=== PATIENT | male | born 1985 | race Caucasian/White ===

== ENCOUNTER → 2016-03-21 | Outpatient (REF) | payer BC ==
[~2016-03-21] MED LIST: AUGM500T34 PO; NORC10TA2 PO; PROBCAP14 PO; VALA500T PO; VITMTA PO
[2016-03-21 18:10] LABS: ALBUMIN 4.6 GM/DL (3.2-5.2); ALBUMIN/GLOBULIN RATIO 1.59 (1.00-1.93); ALKALINE PHOSPHATASE 87 U/L (45-117); ALT/SGPT 49 U/L (12-78); ANION GAP 9 MEQ/L (8-16); AST/SGOT 20 U/L (15-37); BILIRUBIN,TOTAL 0.7 MG/DL (0.2-1.0); BLOOD UREA NITROGEN 16 MG/DL (7-18); CALCIUM LEVEL 9.3 MG/DL (8.5-10.1); CARBON DIOXIDE LEVEL 27 MEQ/L (21-32); CHLORIDE LEVEL 105 MEQ/L (98-107); CHOLESTEROL LEVEL 250 MG/DL (<200); CREATININE FOR GFR 1.13 MG/DL (0.70-1.30); GLOMERULAR FILTRATION RATE > 60.0 (>60); GLUCOSE, FASTING 95 MG/DL (70-105); POTASSIUM SERUM 4.8 MEQ/L (3.5-5.1); SODIUM LEVEL 141 MEQ/L (136-145); TOTAL PROTEIN 7.5 GM/DL (6.4-8.2); TRIGLYCERIDES LEVEL 90 MG/DL (<150)
[2016-03-21 18:34] LABS: MEAN CORPUSCULAR HEMOGLOBIN 28.3 pg (27.0-33.0); MEAN CORPUSCULAR HGB CONC 33.4 g/dl (32.0-36.5); MEAN CORPUSCULAR VOLUME 84.6 fl (80.0-96.0); WHITE BLOOD COUNT 7.9 K/mm3 (4.0-10.0)
== END ==
LOC: M SFHCLERA 10:26
PROVIDERS: ATTEND Family Medicine
DX: K13.79 Other lesions of oral mucosa (principal); Z13.220 Encounter for screening for lipoid disorders

== ENCOUNTER 2016-03-22 08:30 | Day surgery (SDC) | payer BC ==
[~2016-03-22] VITALS: Ht 185.4 cm; Wt 92.5 kg
[2016-03-22] MEDS ORDERED: ONDANSETRON 4MG/2ML VIAL (J2405) As Ordered ONE ×2 (09:50→13:27)
[2016-03-22] MEDS ORDERED: KETOROLAC 30 MG/ML VIAL (J1885) As Ordered ONE (09:50)
[2016-03-22 10:14] LABS: MEAN CORPUSCULAR HEMOGLOBIN 28.4 pg (27.0-33.0); MEAN CORPUSCULAR HGB CONC 34.7 g/dl (32.0-36.5); MEAN CORPUSCULAR VOLUME 81.8 fl (80.0-96.0); PLATELET COUNT, AUTOMATED 328 k/mm3 (150-450); RED CELL DISTRIBUTION WIDTH 11.8 % (11.5-14.5); WHITE BLOOD COUNT 16.6 K/mm3 (4.0-10.0)
[2016-03-22 10:24] LABS: ALBUMIN 4.5 GM/DL (3.2-5.2); ALBUMIN/GLOBULIN RATIO 1.36 (1.00-1.93); ALKALINE PHOSPHATASE 91 U/L (45-117); ALT/SGPT 45 U/L (12-78); AMYLASE 24 U/L (25-115); ANION GAP 8 MEQ/L (8-16); AST/SGOT 19 U/L (15-37); BILIRUBIN,DIRECT 0.1 MG/DL (0.0-0.2); BILIRUBIN,TOTAL 0.9 MG/DL (0.2-1.0); BLOOD UREA NITROGEN 12 MG/DL (7-18); CALCIUM LEVEL 9.2 MG/DL (8.5-10.1); CARBON DIOXIDE LEVEL 29 MEQ/L (21-32); CHLORIDE LEVEL 103 MEQ/L (98-107); CREATININE FOR GFR 1.08 MG/DL (0.70-1.30); GLOMERULAR FILTRATION RATE > 60.0 (>60); GLUCOSE, FASTING 104 MG/DL (70-105); POTASSIUM SERUM 4.1 MEQ/L (3.5-5.1); SODIUM LEVEL 140 MEQ/L (136-145); TOTAL PROTEIN 7.8 GM/DL (6.4-8.2)
[2016-03-22] MEDS ORDERED: ISOVUE-370 76% 100ML VIAL (Q9967) As Ordered ONE (10:35)
--- NOTE | 2016-03-22 10:51 | REP ---
Right upper quadrant sonography: History: Biliary colic. Comparison study: No comparison study. Findings: Scanning through the right upper quadrant of the abdomen demonstrates a normal sized, thin-walled gallbladder without evidence of stone or polyp. Some sludge is visible within the gallbladder lumen. Common bile duct is normal measuring 0.5 cm in greatest diameter. No focal liver lesion is seen. Liver size is normal. No pancreatic abnormality is observed. No right renal abnormality is seen. There is no evidence of ascites. The right kidney measures 11.7 x 5.7 x 5.2 cm. Impression: Some sludge in the gallbladder no stones. Otherwise negative right upper quadrant sonography. Signed by Omar Fuentes MD 03/22/2016 10:42 A
--- NOTE | 2016-03-22 11:46 | REP ---
CT STUDY OF THE ABDOMEN AND PELVIS WITH IV BUT WITHOUT ORAL CONTRAST: HISTORY: Appendicitis. CT contrast dose: 100 mL of Isovue [address] FINDINGS: Digital preliminary sound recordist radiograph is unremarkable. The lung bases are clear on axial CT slices. The liver and the spleen are normal in size and homogeneous in texture. No adrenal lesion is seen on either side. The gallbladder has a Phrygian cap morphology but is otherwise intact. No pancreatic abnormality is seen. The kidneys enhance symmetrically are morphologically intact. Normal caliber aorta is seen. No retroperitoneal mass or adenopathy is observed. The appendix is abnormal showing mural thickening, air and fluid dilation of its lumen, a small enterolith, and periappendiceal inflammation consistent with acute appendicitis. The appendix is located in the mid abdomen in this patient just beneath the inferior edge of the liver. There are two or three adjacent mesenteric lymph nodes. There is no evidence of free intraperitoneal air or abscess. No abdominal wall defect is seen. Small and large intestinal bowel loops are otherwise unremarkable. Urinary bladder, seminal vesicles and prostate are unremarkable. No bony destructive lesion is seen. IMPRESSION: CT findings of acute appendicitis. Appendix in the right mid abdomen. No abscess or free air seen. Signed by Omar Fuentes MD 03/22/2016 01:19 P
[2016-03-22] MEDS ORDERED: ZOSYN 3.375 GM VIAL (J2543) As Ordered ONE (12:51)
[2016-03-22] MEDS ORDERED: PROBCAP14 PO (13:04)
[2016-03-22] MEDS ORDERED: VITMTA PO (13:04)
[2016-03-22] MEDS ORDERED: VALA500T PO (13:04)
[2016-03-22] MEDS ORDERED: MORPHINE 4 MG/ML 1ML SYRINGE As Ordered ONE (13:11)
[2016-03-22] MEDS ORDERED: fentaNYL 250 MCG/5 ML INJECTION (J3010) As Ordered ONE (13:21)
[2016-03-22] MEDS ORDERED: MIDAZOLAM INJ 2 MG/2 ML VIAL (J2250) As Ordered ONE (13:26)
[2016-03-22] MEDS ORDERED: ROCURONIUM BROMIDE 50 MG/5 ML VIAL As Ordered ONE (13:27)
[2016-03-22] MEDS ORDERED: KETOROLAC 60 MG/2 ML VIAL (J1885) As Ordered ONE (13:27)
[2016-03-22] MEDS ORDERED: dexameTHASONE 4 MG/ML 1ML VIAL (J1100) As Ordered ONE ×2 (13:27)
[2016-03-22] MEDS ORDERED: LIDOCAINE 2% INJ 100 MG/5 ML SDV (FOR ANES.) As Ordered ONE (13:27)
[2016-03-22] MEDS ORDERED: PROPOFOL 200 MG/20 ML VIAL As Ordered ONE ×2 (13:27→14:22)
[2016-03-22] MEDS ORDERED: BUPIVACAINE/EPIN 0.25% 30 ML VIAL As Ordered ONE (13:29)
--- NOTE | 2016-03-22 13:29 | EDDOCDS ---
Physician Documentation [facility] Name: Con Monte Age: 30 yrs Sex: Male : 1985 Arrival Date: 03/22/2016 Time: 08:30 Bed I4 / M4 Private MD: Disposition: 03/22/16 12:54 Hospitalization ordered by Sorin Mauricio for Inpatient Admission. Preliminary diagnosis are Acute appendicitis, Upper abdominal pain, unspecified - Gallbladder sludge on Ultrasound. - Bed requested for Admit. - Status is Inpatient Admission. srm - Condition is Stable. - Problem is new. - Symptoms have improved. Historical: - Allergies: no known allergies; - Home Meds: 1. 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 No barriers to communication noted, The patient speaks fluent Upper Sorbian, Speaks appropriately for age. - Family history: Not pertinent. - : The pt / caregiver states he / she is not on anticoagulants. Home medication list is obtained from the patient. - Exposure Risk Screening:: None identified. Vital Signs: 03/22 08:57 BP 148 / 71; Pulse 90; Resp 16; Temp 99.6(O); Pulse Ox 97% on R/A; Weight 92.53 kg / kr3 203.99 lbs (R); Height 6 ft. 1 in. (185.42 cm) (R); 12:27 BP 117 / 72; Pulse 75; Resp 18; Temp 99.0; Pulse Ox 97% ; Pain 4/10; jam1 13:24 BP 138 / 87; Pulse 89; Resp 18; Temp 98.1; Pulse Ox 97% ; Pain 4/10; jam1 08:57 Body Mass Index 26.91 (92.53 kg, 185.42 cm) kr3 MDM: 09:42 NS 0.9% 1000 ml IV at bolus once ordered. ef1 09:42 Ondansetron 4 mg IVP once ordered. ef1 09:42 ketorolac 30 mg IVP once ordered. ef1 09:42 IV Saline Lock ordered. ef1 09:42 Undress patient appropriately for examination ordered. ef1 09:43 Amylase Ordered. EDMS 09:43 Basic Metabolic Profile Ordered. EDMS 09:43 CBC with Diff Ordered. EDMS 09:43 Lipase Ordered. EDMS 09:43 Liver Profile Ordered. EDMS 09:43 Urinalysis Ordered. EDMS 09:43 Urine Culture Ordered. EDMS 09:43 CT ABD & PELVIS: IV Contrast Only Ordered. EDMS 09:43 NOTHING BY MOUTH+DIET ordered. EDMS 09:45 Gallbladder US Ordered. EDMS 10:09 Financial registration complete. mm15 10:16 DIFFERENTIAL NO CHARGE Ordered. EDMS 10:18 [facility] [place] was [place] into [employer] and attached to record. mm15 10:36 Amylase Reviewed. ef1 10:36 CBC with Diff Reviewed. ef1 10:36 Basic Metabolic Profile Reviewed. ef1 10:36 Lipase Reviewed. ef1 10:36 Liver Profile Reviewed. ef1 10:36 Urinalysis Reviewed. ef1 12:45 Piperacillin-Tazobactam 3.375 grams IVPB once over 30 mins; dilute in 50mL of NS or D5W ef1 ordered. 12:45 CBC with Diff Reviewed. ef1 12:45 PLATELET ESTIMATE Reviewed. ef1 12:45 CT ABD & PELVIS: IV Contrast Only Reviewed. ef1 12:45 Gallbladder US Reviewed. ef1 12:46 BED REQUEST+ADM ordered. EDMS 13:00 morphine 4 mg IVP once ordered. ef1 13:20 Admission Orders was scanned into [employer] and attached to record. jml1 Administered Medications: 09:56 Drug: NS 0.9% 1000 ml [sodium chloride 0.9 % intravenous solution] Route: IV; Rate: mcp bolus; Site: right antecubital; :56 Drug: Ondansetron 4 mg [ondansetron HCl 2 mg/mL intravenous solution (2 mL)] Route: mcp IVP; Site: right antecubital; 09:56 Drug: ketorolac 30 mg [ketorolac 30 mg/mL (1 mL) injection solution (1 mL)] Route: IVP; mcp Site: right antecubital; 13:08 Drug: Piperacillin-Tazobactam 3.375 grams [piperacillin-tazobactam 3.375 gram ms18 intravenous solution] Route: IVPB; Infused Over: 30 mins; Site: right antecubital; Signatures: Dispatcher [employer] EDND Maine Paul, RN RN srm Esha Lofton RN RN kr3 Nazanin Jiménez, KEYSHAC PADmitryC ef1 Garrett Garsia jml1 Isaias Yi mm15 Malathi Lopez RN RN ms18 Odette Maier RN [facility] The chart was reviewed and I authenticate all verbal orders and agree with the evaluation and treatment provided.Attachments: 10:18 [facility] [place] mm15 13:20 Admission Orders jml1 MTDD
--- NOTE | 2016-03-22 13:29 | EDDOCDS ---
Nurse's Notes [facility] Name: Con Monte Age: 30 yrs Sex: Male : 1985 Arrival Date: 03/22/2016 Time: 08:30 Bed I4 / M4 Private MD: Diagnosis: Acute appendicitis;Upper abdominal pain, unspecified-Gallbladder sludge on Ultrasound Presentation: 03/22 08:54 Presenting complaint: Patient states: abdominal pain for more than 5 hours. Risk kr3 factors: the patient reports not having a history of previous torsion. Adult Sepsis Screening: The patient does not have new or worsening altered mentation. Patient's respiratory rate is less than 22. Systolic blood pressure is greater than 100. Patient has a qSOFA score of 0- Negative Sepsis Screen. Suicide/Homicide risk assessment- the patient denies having any suicidal and/or homicidal ideations and does not present with any other emotional, behavioral or mental health complaints. Status: Patient is not a customer service rep or dependent. Transition of care: patient was not received from another setting of care. 08:54 Acuity: POOL Level 3 kr3 08:54 Method Of Arrival: Walkin/Carried/Asstd kr3 Triage Assessment: 08:57 General: Appears in no apparent distress, comfortable, Behavior is cooperative. Pain: kr3 Location: right upper quadrant Pain currently is 6 out of 10 on a pain scale. HIV screening NA for this visit Offered previously. Neurological: No deficits noted. GI: Denies nausea, vomiting. Derm: Skin is normal. Historical: - Allergies: no known allergies; - Home Meds: 1. 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 No barriers to communication noted, The patient speaks fluent Puerto Rican, Speaks appropriately for age. - Family history: Not pertinent. - : The pt / caregiver states he / she is not on anticoagulants. Home medication list is obtained from the patient. - Exposure Risk Screening:: None identified. Screenin:57 Screening information is obtained from the patient. Primary language is Puerto Rican. Fall jam1 risk: No risks identified. Assistance ADL's: requires no assistance with activities of daily living. Abuse/DV Screen: The patient / caregiver reports he/she is: not in a situation that causes fear, pain or injury. Nutritional screening: No deficits noted. Exposure Risk Screening: None identified. Advance Directives: Currently, there is no health care proxy. There is no active DNR order. There is no living will. There is no Power of Software Development Specialist. Advance directive information has not previously been placed in an [facility] medical record. Further advance directive information is declined. home support is adequate. Assessment: 11:56 General: Appears in no apparent distress, comfortable, Behavior is appropriate for age, ms18 cooperative. Pain: Denies pain. Neurological: Level of Consciousness is awake, alert, obeys commands, Oriented to person, place, time. Respiratory: Airway is patent Respiratory effort is even, unlabored. GI: Abdomen is non- distended. Derm: Skin is pink, warm & dry. 13:08 General: Dr. Mauricio in to see the pt at this time. Will continue to monitor pt. ms18 13:25 General: Appears in no apparent distress, Behavior is appropriate for age, cooperative. srm GI: Abdomen is non- distended Bowel sounds present X 4 quads. Abd is soft X 4 quads Abd is tender to palpation in right lower quadrant. Vital Signs: 08:57 BP 148 / 71; Pulse 90; Resp 16; Temp 99.6(O); Pulse Ox 97% on R/A; Weight 92.53 kg (R); kr3 Height 6 ft. 1 in. (185.42 cm) (R); 12:27 BP 117 / 72; Pulse 75; Resp 18; Temp 99.0; Pulse Ox 97% ; Pain 4/10; jam1 13:24 BP 138 / 87; Pulse 89; Resp 18; Temp 98.1; Pulse Ox 97% ; Pain 4/10; jam1 08:57 Body Mass Index 26.91 (92.53 kg, 185.42 cm) [facility] Vitals: 08:57 Log In Time: March 22, 2016 at 08:30. [facility] ED Course: 08:31 Patient visited by Isaias Yi. mm15 08:31 Patient moved to Waiting mm15 08:54 Patient moved to Triage 2 kr3 08:55 Triage Initiated 3 09:25 Nazanin Jiménez PA-C [facility]. ef1 09:25 Cassie Lewis MD is Attending Physician. ef1 09:25 Patient visited by Nazanin Jiménez PA-C. ef1 09:44 Patient moved to I4 / M4 kr3 09:57 Pt greeted and oriented to ED. Patient advised of names of staff involved in care, jamRichard location of call plummer, wait times and NPO status. Patient has correct armband on for positive identification. Placed in gown. Bed in low position. Call light in reach. Side rails up X 1. Adult w/ patient. Door closed. 10:03 Urinalysis Sent. js13 10:03 Urine Culture Sent. js13 10:04 Inserted saline lock: 18 gauge in right antecubital area and blood collected. The js13 patient tolerated the procedure well. No procedures done that require assistance. Labs drawn. (by ED staff). Sent per order to lab. 10:18 [facility] Payment Agreement was scanned into [employer] and attached to record. mm15 10:20 Patient visited by Nazanin Jiménez PA-C. ef1 10:21 DIFFERENTIAL NO CHARGE Sent. js13 10:23 Patient moved to Ultrasound en 10:36 Patient visited by Nazanin Jiménez PA-C. ef1 10:39 Patient moved to I4 / M4 en 11:04 Gallbladder US Returned. EDMS 11:49 CT ABD & PELVIS: IV Contrast Only Returned. EDMS 11:56 Patient visited by Malathi Lopez RN. ms18 11:56 The patient / caregiver is instructed regarding the plan of care and ED course. ms18 Property :Personal belongings accompany Pt. 12:44 Patient visited by Nazanin Jiménez PA-C. ef1 12:54 Sorin Mauricio MD is Hospitalizing Provider. ef1 13:20 Patient visited by Garrett Garsia. jml1 13:20 Admission Orders was scanned into [employer] and attached to record. jml1 Administered Medications: 09:56 Drug: NS 0.9% 1000 ml [sodium chloride 0.9 % intravenous solution] Route: IV; Rate: mcp bolus; Site: right antecubital; :56 Drug: Ondansetron 4 mg [ondansetron HCl 2 mg/mL intravenous solution (2 mL)] Route: mcp IVP; Site: right antecubital; 09:56 Drug: ketorolac 30 mg [ketorolac 30 mg/mL (1 mL) injection solution (1 mL)] Route: IVP; [place] [facility] Site: right antecubital; 13:08 Drug: Piperacillin-Tazobactam 3.375 grams [piperacillin-tazobactam 3.375 gram ms18 intravenous solution] Route: IVPB; Infused Over: 30 mins; Site: right antecubital; Intake: 13:27 IV: 1000.00ml (NS); Total: 1000.00ml. srm Order Results: Lab Order: Amylase; SPEC'M 03/22/16 09:53 Test: AMYLASE; Value: 24; Range: 25-115; Abnormal: Below low normal; Units: U/L; Status: F Lab Order: Basic Metabolic Profile; SPEC'M 03/22/16 09:53 Test: GLUCOSE, FASTING; Value: 104; Range: 70-105; Units: MG/DL; Status: F Test: BLOOD UREA NITROGEN; Value: 12; Range: 7-18; Units: MG/DL; Status: F Test: CREATININE FOR GFR; Value: 1.08; Range: 0.70-1.30; Units: MG/DL; Status: F Test: GLOMERULAR FILTRATION RATE; Value: > 60.0; Range: >60; Status: F Test: SODIUM LEVEL; Value: 140; Range: 136-145; Units: MEQ/L; Status: F Test: POTASSIUM SERUM; Value: 4.1; Range: 3.5-5.1; Units: MEQ/L; Status: F Test: CHLORIDE LEVEL; Value: 103; Range: 98-107; Units: MEQ/L; Status: F Test: CARBON DIOXIDE LEVEL; Value: 29; Range: 21-32; Units: MEQ/L; Status: F Test: ANION GAP; Value: 8; Range: 8-16; Units: MEQ/L; Status: F Test: CALCIUM LEVEL; Value: 9.2; Range: 8.5-10.1; Units: MG/DL; Status: F Test Note: ; Units are mL/min/1.73 m2 Chronic Kidney Disease Staging per NKF: Stage I & II GFR >=60 Normal to Mildly Decreased Stage III GFR 30-59 Moderately Decreased Stage IV GFR 15-29 Severely Decreased Stage V GFR <15 Very Little GFR Left ESRD GFR <15 on [employer] Lab Order: CBC with Diff; SPEC03/22/16 09:53 Test: WHITE BLOOD COUNT; Value: 16.6; Range: 4.0-10.0; Abnormal: Above high normal; Units: K/mm3; Status: F Test: RED BLOOD COUNT; Value: 5.75; Range: 4.30-6.10; Units: M/mm3; Status: F Test: HEMOGLOBIN; Value: 16.3; Range: 14.0-18.0; Units: g/dl; Status: F Test: HEMATOCRIT; Value: 47.0; Range: 42.0-52.0; Units: %; Status: F Test: MEAN CORPUSCULAR VOLUME; Value: 81.8; Range: 80.0-96.0; Units: fl; Status: F Test: MEAN CORPUSCULAR HEMOGLOBIN; Value: 28.4; Range: 27.0-33.0; Units: pg; Status: F Test: MEAN CORPUSCULAR HGB CONC; Value: 34.7; Range: 32.0-36.5; Units: g/dl; Status: F Test: RED CELL DISTRIBUTION WIDTH; Value: 11.8; Range: 11.5-14.5; Units: %; Status: F Test: PLATELET COUNT, AUTOMATED; Value: 328; Range: 150-450; Units: k/mm3; Status: F Test: NEUTROPHILS; Value: 84; Range: 35-75; Abnormal: Above high normal; Units: %; Status: F Test: LYMPHOCYTES; Value: 12; Range: 16-52; Abnormal: Below low normal; Units: %; Status: F Test: MONOCYTES; Value: 4; Range: 0-8; Units: %; Status: F Test: RBC MORPHOLOGY; Value: NORMAL; Status: F Lab Order: Lipase; SPEC03/22/16 09:53 Test: LIPASE; Value: 106; Range: 73-393; Units: U/L; Status: F Lab Order: Liver Profile; SPEC03/22/16 09:53 Test: AST/SGOT; Value: 19; Range: 15-37; Units: U/L; Status: F Test: ALT/SGPT; Value: 45; Range: 12-78; Units: U/L; Status: F Test: ALKALINE PHOSPHATASE; Value: 91; Range: 45-117; Units: U/L; Status: F Test: BILIRUBIN,TOTAL; Value: 0.9; Range: 0.2-1.0; Units: MG/DL; Status: F Test: BILIRUBIN,DIRECT; Value: 0.1; Range: 0.0-0.2; Units: MG/DL; Status: F Test: TOTAL PROTEIN; Value: 7.8; Range: 6.4-8.2; Units: GM/DL; Status: F Test: ALBUMIN; Value: 4.5; Range: 3.2-5.2; Units: GM/DL; Status: F Test: ALBUMIN/GLOBULIN RATIO; Value: 1.36; Range: 1.00-1.93; Status: F Lab Order: Urinalysis; SPEC'M 03/22/16 09:53 Test: APPEARANCE, URINE; Value: CLEAR; Range: CLEAR; Status: F Test: COLOR, URINE; Value: YELLOW; Range: YELLOW; Status: F Test: PH,URINE; Value: 5.0; Range: 5.0-9.0; Units: UNITS; Status: F Test: SPECIFIC GRAVITY URINE AUTO; Value: 1.012; Range: 1.002-1.035; Status: F Test: PROTEIN, URINE AUTO; Value: NEGATIVE; Range: NEGATIVE; Units: mg/dL; Status: F Test: GLUCOSE, URINE (UA) AUTO; Value: NEGATIVE; Range: NEGATIVE; Units: mg/dL; Status: F Test: KETONE, URINE AUTO; Value: NEGATIVE; Range: NEGATIVE; Units: mg/dL; Status: F Test: UROBILINOGEN, URINE AUTO; Value: 0.2; Range: 0.0-2.0; Units: mg/dL; Status: F Test: BILIRUBIN, URINE AUTO; Value: NEGATIVE; Range: NEGATIVE; Status: F Test: NITRITE, URINE AUTO; Value: NEGATIVE; Range: NEGATIVE; Status: F Test: LEUKOCYTE ESTERASE, URINE AUTO; Value: NEGATIVE; Range: NEGATIVE; Status: F Test: BLOOD, URINE BLOOD; Value: NEGATIVE; Range: NEGATIVE; Status: F Test: WBC, URINE AUTO; Value: 0; Range: 0-3; Units: /HPF; Status: F Test: RBC, URINE AUTO; Value: 0; Range: 0-3; Units: /HPF; Status: F Test: BACTERIA, URINE AUTO; Value: NEGATIVE; Range: NEGATIVE; Status: F Test: SQUAMOUS EPITHELIAL CELL UR AU; Value: 0; Range: 0-6; Units: /HPF; Status: F Test: HYALINE CAST, URINE AUTO; Value: 0; Range: 0-1; Units: /LPF; Status: F Lab Order: PLATELET ESTIMATE; SPEC'M 03/22/16 09:53 Test: PLATELET ESTIMATE; Value: NORMAL; Range: NORMAL; Status: F Radiology Order: CT ABD & PELVIS: IV Contrast Only Test: CT ABD & PELVIS: IV Contrast Only REASON FOR EXAMINATION: Appendicitis; CT STUDY OF THE ABDOMEN AND PELVIS WITH IV BUT WITHOUT ORAL CONTRAST:; ; HISTORY: Appendicitis.; ; CT contrast dose: 100 mL of Isovue 370 is administered intravenously.; ; CT FINDINGS: Digital preliminary regional intermodal truck driver radiograph is unremarkable. The lung; bases are clear on axial CT slices. The liver and the spleen are normal in size; and homogeneous in texture. No adrenal lesion is seen on either side. The; gallbladder has a Phrygian cap morphology but is otherwise intact. No pancreatic; abnormality is seen. The kidneys enhance symmetrically are morphologically; intact. Normal caliber aorta is seen. No retroperitoneal mass or adenopathy is; observed. The appendix is abnormal showing mural thickening, air and fluid; dilation of its lumen, a small enterolith, and periappendiceal inflammation; consistent with acute appendicitis. The appendix is located in the mid abdomen; in this patient just beneath the inferior edge of the liver. There are two or; three adjacent mesenteric lymph nodes. There is no evidence of free; intraperitoneal air or abscess.; ; No abdominal wall defect is seen. Small and large intestinal bowel loops are; otherwise unremarkable. Urinary bladder, seminal vesicles and prostate are; unremarkable. No bony destructive lesion is seen.; ; IMPRESSION:; CT findings of acute appendicitis. Appendix in the right mid abdomen. No abscess; or free air seen.; ; ; ; ; Unreviewed; Radiology Order: Gallbladder US Test: Gallbladder US REASON FOR EXAMINATION: Biliary Colic; Right upper quadrant sonography:; ; History: Biliary colic.; ; Comparison study: No comparison study.; ; Findings: Scanning through the right upper quadrant of the abdomen demonstrates a; normal sized, thin-walled gallbladder without evidence of stone or polyp. Some; sludge is visible within the gallbladder lumen. Common bile duct is normal; measuring 0.5 cm in greatest diameter. No focal liver lesion is seen. Liver; size is normal. No pancreatic abnormality is observed. No right renal; abnormality is seen. There is no evidence of ascites. The right kidney measures; 11.7 x 5.7 x 5.2 cm.; ; Impression:; ; Some sludge in the gallbladder no stones. Otherwise negative right upper; quadrant sonography.; ; ; Signed by; Omar Fuentes MD 03/22/2016 10:42 A; Outcome: 12:54 Decision to Hospitalize by Provider. ef1 13:27 Discharge Assessment: Patient awake, alert and oriented x 3. No cognitive and/or [facility] functional deficits noted. Patient verbalized understanding of disposition instructions. patient administered narcotics -. 13:27 Discharge Assessment: patient administered narcotics - yes. Patient was admitted to the [facility] hospital or transferred to another facility. The following High Risk Discharge criteria are identified: None. Admitted to OR accompanied by nurse, accompanied by tech, via stretcher, with chart. Condition: stable. CT Study completed. 13:28 Patient left the ED. [facility] Signatures: Dispatcher [employer] EDMS Maine Paul RN SESAR [facility] Odette Maier, RN Janna Vann mcp, [employer] REPAIR TECHNICIAN jam1 Esha Lofton,RN RN kr3 Nazanin Jiménez, PA-C PA-C ef1 Garrett Garsia jml1 Leora Payton RN RN js13 Isaias Yi mm15 Malathi Lopez RN RN ms18 Jana Escalera MTDD
[2016-03-22] MEDS ORDERED: GLYCOPYRROLATE INJ 0.2 MG/ML 2 ML VIAL As Ordered ONE ×2 (14:20)
[2016-03-22] MEDS ORDERED: NEOSTIGMINE 1MG/ML 5 ML SYRINGE (J2710) As Ordered ONE (14:20)
[2016-03-22] MEDS ORDERED: BUPIVACAINE/EPIN 0.25% 30 ML VIAL XX ONE (14:40)
[2016-03-22] MEDS ORDERED: MORPHINE 4 MG/ML 1ML SYRINGE IV PRN (15:15)
[2016-03-22] MEDS ORDERED: METOCLOPRAMIDE INJ 10MG/2ML VIAL (J2765) IV PRN ×2 (15:15→16:00)
[2016-03-22] MEDS ORDERED: MORPHINE 2 MG/ML 1ML SYRINGE IV PRN (15:15)
[2016-03-22] MEDS ORDERED: NORCO, ANEXSIA 5/325MG TABLET (HYDROcodone/ACETAMINOPHEN) PO PRN (15:15)
[2016-03-22] MEDS ORDERED: ONDANSETRON 4MG/2ML VIAL (J2405) IV PRN ×2 (15:15→16:00)
[2016-03-22] MEDS ORDERED: PROMETHAZINE INJ 25 MG/ML VIAL (J2550) IV PRN (15:15)
--- NOTE | 2016-03-22 15:17 | RO ---
DATE OF PROCEDURE: 03/22/2016 PREPROCEDURE DIAGNOSIS: Acute appendicitis. POSTPROCEDURE DIAGNOSIS: Acute appendicitis. PROCEDURE: Laparoscopic appendectomy. SURGEON: Sorin Mauricio MD ANESTHESIA: General endotracheal anesthesia. ESTIMATED BLOOD LOSS: Minimal. FLUIDS: Crystalloid. DESCRIPTION OF PROCEDURE: The patient was brought to the operating room and was given general anesthesia. After adequate anesthesia and preoperative antibiotics were given, the patient was prepped and draped in usual sterile fashion. Next, a supraumbilical incision was made with skin knife. Electrocautery was used to cut through dermis, underlying subcutaneous tissue down to the fascia. Fascia was grasped with Deepti clamps, elevated and a Veress needle placed into the abdominal cavity, insufflated to 15 mm pressure. A dilating 12 mm trocar was placed at the umbilicus under direct visualization. A 5 mm suprapubic and 5 mm left lower quadrant trocars were placed. The appendix was a little higher than a typical appendix on the right mid lateral abdomen and it was anteriorly placed. This was mobilized off the base of the cecum using the harmonic scalpel, first to takedown minimal adhesions and eventually after taking down these adhesions, the mesentery of the appendix was taken with harmonic scalpel. This was transected using the harmonic scalpel. Then the base of the appendix was transected using a WALE stapler. It was taken at the level where it abutted to the cecum itself. The staple line was clean, dry and no bleeding was appreciated. The operative field was clean and dry. This was irrigated, but at this point, the patient developed some bradycardia associated with increased intra-abdominal pressure. The right side had been irrigated so that was clear; however, and the entire amount of fluid was not able to be removed and thus the abdomen was decompressed. The bradycardia resolved quite quickly and all trocars were removed under direct visualization at this time. 0 Vicryl was used to close the fascia at the umbilicus and all incisions were closed with #4-0 Vicryl. Steri-Strips and a dry sterile dressing was applied. The patient was awakened, extubated and brought to the recovery room awake, alert, hemodynamically stable. Sponge and needle counts correct times two.
[2016-03-22] MEDS ORDERED: PERCOCET 5MG/325MG TAB As Ordered ONE (15:44)
[2016-03-22] MEDS ORDERED: MEPERIDINE INJ 25 MG/ML VIAL (J2175) IV PRN (16:00)
[2016-03-22] MEDS ORDERED: LR 1,000 ML IV SCH (16:00)
[2016-03-22] MEDS ORDERED: PERCOCET 5MG/325MG TAB PO PRN (16:00)
[2016-03-22] MEDS ORDERED: fentaNYL 100 MCG/2 ML INJECTION (J3010) IV PRN (16:00)
[2016-03-22 16:15] VITALS: BP 121/77
[2016-03-22 16:45] VITALS: BP 137/82
[2016-03-22] MEDS: D5W/LR 1,000 ML IV SCH ×2 (17:20→23:05)
[2016-03-22 17:45] VITALS: BP 131/79
[2016-03-22 18:45] VITALS: BP 139/83
[2016-03-22] MEDS: PIPERACILLIN/TAZOBACTAM SOD 3.375 GM in D5W MINI-BAG PLUS 50 ML IV SCH (19:44)
[2016-03-22 19:45] VITALS: BP 137/79
[2016-03-22 20:45] VITALS: BP 145/88
[2016-03-22] MEDS: KETOROLAC 30 MG/ML VIAL (J1885) IV SCH (20:50)
[2016-03-23] VITALS: BP 137/74
[2016-03-23] MEDS: PIPERACILLIN/TAZOBACTAM SOD 3.375 GM in D5W MINI-BAG PLUS 50 ML IV SCH ×2 (00:09→06:04)
[2016-03-23] MEDS: NORCO, ANEXSIA 5/325MG TABLET (HYDROcodone/ACETAMINOPHEN) PO PRN ×2 (00:10→06:11)
[2016-03-23] MEDS: KETOROLAC 30 MG/ML VIAL (J1885) IV SCH ×2 (02:48→08:03)
[2016-03-23 04:00] VITALS: BP 116/58
[2016-03-23 08:00] VITALS: BP 116/71
[2016-03-23] MEDS ORDERED: AUGM500T34 PO (09:08)
[2016-03-23] MEDS ORDERED: NORC10TA2 PO (09:08)
--- NOTE | 2016-03-23 10:32 | DS.PDOC ---
Discharge Summary General Date of Admission 03/22/16 Date of Discharge 03/23/16 Attending Physician: Sorin Maurciio Jr Discharge Summary PROCEDURES PERFORMED DURING STAY: Laparoscopic cholecystectomy. COMPLICATIONS/CHIEF COMPLAINT: Appendicitis ADMISSION DIAGNOSES: 1. Acute Appendicitis 2. Abdominal Pain DISCHARGE DIAGNOSES: 1. Status post laparoscopic appendectomy. 2. Abdominal pain resolved. HISTORY OF PRESENT ILLNESS: Patient is a 30 year old male presenting with abdominal pain for x1 day. HOSPITAL COURSE: Patient was admitted for abdominal pain. Patient had pain since 4 AM on 03/22/16. Pain did not go away and patient presented to ER. Pain was located to RUQ. CT showed signs of appendicitis. Patient's WBC count was 16.[address] Mauricio was consulted to evaluate and treat patient. A laparoscopic appendectomy was performed. Patient was observed overnight. Patient is managing pain and has tolerated regular diet. No nausea or vomiting. Abdominal pain has resolved. No pain on discharge. DISCHARGE MEDICATIONS: Please see below. ALLERGIES: Please see below. PHYSICAL EXAMINATION ON DISCHARGE: VITAL SIGNS: Please see below. GENERAL: Cooperative. Alert and orientated. No acute distress. HEENT: Eyes open spontaneously. CARDIOVASCULAR EXAMINATION: Normal s1 and s2, no clicks rubs gallops or murmurs. RESPIRATORY EXAMINATION: Equal bilaterally. ABDOMINAL EXAMINATION: Soft, nondistended. No pain to palpation. Bowel sounds heard. Wound site are healing, no signs of inflammation. Wound is covered with steri strips and sterile dressing. EXTREMITIES: no lower extremity edema. NEUROLOGICAL EXAMINATION: Speech intact. LABORATORY DATA: Please see below. IMAGING: CT abdomen and pelvis: showed thickening of appendix, air and fluid dilation of lumen, small enterolith, inflammation. VTE Prophylaxis ordered?: Ambulation encouraged. DISCHARGE CONDITION: Stable. DISPOSITION: home. ACTIVITY: Rest for first 2 days. Then restrict lifting. Only up to 25 pounds for first 2 weeks and 50 pounds for following 2 weeks. DIET: As tolerated. ITEMS TO FOLLOWUP ON OUTPATIENT: 1. . 2. . 3. . DISCHARGE PLAN AND INSTRUCTIONS: 1. Patient to be discharged on Augmentin 500 mg PO BID for 5 days, [place] 10-325 mg Q4-6h PRN for pain MDD 6 dispense 20. 2. Patient may take ibuprofen 600 mg PRN TID for pain. 3. Patient to rest first 2 days with no lifting, pulling or twisting. Then take it easy following those 2 days. Restrict lifting based on weight as mentioned above. TIME SPENT ON DISCHARGE: Greater than 20 minutes. Vital Signs/I&Os Vital Signs Date Time Temp Pulse Resp B/P Pulse Ox O2 Delivery O2 Flow Rate FiO2 03/23/16 08:00 96.6 77 18 116/71 96 Room Air I&O- Last 24 Hours up to 6 AM 03/23/16 05:59 Intake Total 3560 ml Output Total 2310 ml Balance 1250 ml Microbiology Microbiology 03/22/16 Urine Culture - Final, Complete Medications Scheduled (Probiotic) 1 Cap Cap 1 CAP PO DAILY Amoxicillin/Clavulanate Potas (Augmentin 500-125 mg) 1 Tab Tab 500 MG PO BID Multivitamins *[facility] STOCKED* (Thera M Plus *[facility] STOCKED*) 1 Tab Tab 1 TAB PO DAILY Scheduled PRN Acetaminophen/Hydrocodone ([place] 10-325 mg) 1 Tab Tab 1 TAB PO PRN PRN PRN PAIN OR FEVER Valacyclovir HCl (Valacyclovir HCl) 500 Mg Tab 1,000 MG PO DAILY PRN PRN COLD SORES Allergies Coded Allergies: No Known Allergies (Unverified , 03/22/16) GME ATTESTATION GME ATTESTATION My preceptor for this patient encounter was Dr. Mauricio and he was physically present in the building during the encounter and was fully available. As needed , all aspects of the patient interview, examination, medical decision making process, and medical care plan development were reviewed and approved by the preceptor. Preceptor is aware and concurs with the plan as stated in the body of this note and will attest to such by his/her cosignature. GUILLERMO NOGUEIRA DO Mar 23, 2016 10:32
--- NOTE | 2016-03-24 14:29 | EDDOCDS ---
Physician Documentation [facility] Name: Con Monte Age: 30 yrs Sex: Male : 1985 Arrival Date: 03/22/2016 Time: 08:30 Bed I4 / M4 Private MD: Disposition: 03/22/16 12:54 Hospitalization ordered by Sorin Mauricio for Inpatient Admission. Preliminary diagnosis are Acute appendicitis, Upper abdominal pain, unspecified - Gallbladder sludge on Ultrasound. - Bed requested for Admit. - Status is Inpatient Admission. srm - Condition is Stable. - Problem is new. - Symptoms have improved. Historical: - Allergies: no known allergies; - Home Meds: 1. 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 No barriers to communication noted, The patient speaks fluent Maltese, Speaks appropriately for age. - Family history: Not pertinent. - : The pt / caregiver states he / she is not on anticoagulants. Home medication list is obtained from the patient. - Exposure Risk Screening:: None identified. Vital Signs: 03/22 08:57 BP 148 / 71; Pulse 90; Resp 16; Temp 99.6(O); Pulse Ox 97% on R/A; Weight 92.53 kg / kr3 203.99 lbs (R); Height 6 ft. 1 in. (185.42 cm) (R); 12:27 BP 117 / 72; Pulse 75; Resp 18; Temp 99.0; Pulse Ox 97% ; Pain 4/10; jam1 13:24 BP 138 / 87; Pulse 89; Resp 18; Temp 98.1; Pulse Ox 97% ; Pain 4/10; jam1 08:57 Body Mass Index 26.91 (92.53 kg, 185.42 cm) kr3 MDM: 09:42 NS 0.9% 1000 ml IV at bolus once ordered. ef1 09:42 Ondansetron 4 mg IVP once ordered. ef1 09:42 ketorolac 30 mg IVP once ordered. ef1 09:42 IV Saline Lock ordered. ef1 09:42 Undress patient appropriately for examination ordered. ef1 09:43 Amylase Ordered. EDMS 09:43 Basic Metabolic Profile Ordered. EDMS 09:43 CBC with Diff Ordered. EDMS 09:43 Lipase Ordered. EDMS 09:43 Liver Profile Ordered. EDMS 09:43 Urinalysis Ordered. EDMS 09:43 Urine Culture Ordered. EDMS 09:43 CT ABD & PELVIS: IV Contrast Only Ordered. EDMS 09:43 NOTHING BY MOUTH+DIET ordered. EDMS 09:45 Gallbladder US Ordered. EDMS 10:09 Financial registration complete. mm15 10:16 DIFFERENTIAL NO CHARGE Ordered. EDMS 10:18 [facility] Payment Agreement was scanned into [employer] and attached to record. mm15 10:36 Amylase Reviewed. ef1 10:36 CBC with Diff Reviewed. ef1 10:36 Basic Metabolic Profile Reviewed. ef1 10:36 Lipase Reviewed. ef1 10:36 Liver Profile Reviewed. ef1 10:36 Urinalysis Reviewed. ef1 12:45 Piperacillin-Tazobactam 3.375 grams IVPB once over 30 mins; dilute in 50mL of NS or D5W ef1 ordered. 12:45 CBC with Diff Reviewed. ef1 12:45 PLATELET ESTIMATE Reviewed. ef1 12:45 CT ABD & PELVIS: IV Contrast Only Reviewed. ef1 12:45 Gallbladder US Reviewed. ef1 12:46 BED REQUEST+ADM ordered. EDMS 13:00 morphine 4 mg IVP once ordered. ef1 13:20 Admission Orders was scanned into [employer] and attached to record. jml1 14:27 T-Sheet-- Draft Copy was scanned into [employer] and attached to record. gb Administered Medications: :56 Drug: NS 0.9% 1000 ml [sodium chloride 0.9 % intravenous solution] Route: IV; Rate: mcp bolus; Site: right antecubital; :56 Drug: Ondansetron 4 mg [ondansetron HCl 2 mg/mL intravenous solution (2 mL)] Route: mcp IVP; Site: right antecubital; :56 Drug: ketorolac 30 mg [ketorolac 30 mg/mL (1 mL) injection solution (1 mL)] Route: IVP; mcp Site: right antecubital; 13:08 Drug: Piperacillin-Tazobactam 3.375 grams [piperacillin-tazobactam 3.375 gram ms18 intravenous solution] Route: IVPB; Infused Over: 30 mins; Site: right antecubital; Signatures: Dispatcher [employer] [place] Mckay RN RN [facility] Wendy Newman, Parvez [facility] Esha Lofton RN RN kr3 Nazanin Jiménez, PADmitryC PA-C ef1 Garrett Garsia jml1 Isaias Yi mm15 Malathi Lopez RN RN ms18 Odette Maier RN [facility] The chart was reviewed and I authenticate all verbal orders and agree with the evaluation and treatment provided.Attachments: 10:18 [facility] Payment Agreement mm15 13:20 Admission Orders jml1 14:27 T-Sheet-- Draft Copy gb Chart Complete MTDD
--- NOTE | 2016-03-24 14:29 | EDDOCDS ---
Physician Documentation [facility] Name: Con Monte Age: 30 yrs Sex: Male : 1985 Arrival Date: 03/22/2016 Time: 08:30 Bed I4 / M4 Private MD: Disposition: 03/22/16 12:54 Hospitalization ordered by Sorin Mauricio for Inpatient Admission. Preliminary diagnosis are Acute appendicitis, Upper abdominal pain, unspecified - Gallbladder sludge on Ultrasound. - Bed requested for Admit. - Status is Inpatient Admission. srm - Condition is Stable. - Problem is new. - Symptoms have improved. Historical: - Allergies: no known allergies; - Home Meds: 1. 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 No barriers to communication noted, The patient speaks fluent Welsh, Speaks appropriately for age. - Family history: Not pertinent. - : The pt / caregiver states he / she is not on anticoagulants. Home medication list is obtained from the patient. - Exposure Risk Screening:: None identified. Vital Signs: 03/22 08:57 BP 148 / 71; Pulse 90; Resp 16; Temp 99.6(O); Pulse Ox 97% on R/A; Weight 92.53 kg / kr3 203.99 lbs (R); Height 6 ft. 1 in. (185.42 cm) (R); 12:27 BP 117 / 72; Pulse 75; Resp 18; Temp 99.0; Pulse Ox 97% ; Pain 4/10; jam1 13:24 BP 138 / 87; Pulse 89; Resp 18; Temp 98.1; Pulse Ox 97% ; Pain 4/10; jam1 08:57 Body Mass Index 26.91 (92.53 kg, 185.42 cm) kr3 MDM: 09:42 NS 0.9% 1000 ml IV at bolus once ordered. ef1 09:42 Ondansetron 4 mg IVP once ordered. ef1 09:42 ketorolac 30 mg IVP once ordered. ef1 09:42 IV Saline Lock ordered. ef1 09:42 Undress patient appropriately for examination ordered. ef1 09:43 Amylase Ordered. EDMS 09:43 Basic Metabolic Profile Ordered. EDMS 09:43 CBC with Diff Ordered. EDMS 09:43 Lipase Ordered. EDMS 09:43 Liver Profile Ordered. EDMS 09:43 Urinalysis Ordered. EDMS 09:43 Urine Culture Ordered. EDMS 09:43 CT ABD & PELVIS: IV Contrast Only Ordered. EDMS 09:43 NOTHING BY MOUTH+DIET ordered. EDMS 09:45 Gallbladder US Ordered. EDMS 10:09 Financial registration complete. mm15 10:16 DIFFERENTIAL NO CHARGE Ordered. EDMS 10:18 [facility] Payment Agreement was scanned into [employer] and attached to record. mm15 10:36 Amylase Reviewed. ef1 10:36 CBC with Diff Reviewed. ef1 10:36 Basic Metabolic Profile Reviewed. ef1 10:36 Lipase Reviewed. ef1 10:36 Liver Profile Reviewed. ef1 10:36 Urinalysis Reviewed. ef1 12:45 Piperacillin-Tazobactam 3.375 grams IVPB once over 30 mins; dilute in 50mL of NS or D5W ef1 ordered. 12:45 CBC with Diff Reviewed. ef1 12:45 PLATELET ESTIMATE Reviewed. ef1 12:45 CT ABD & PELVIS: IV Contrast Only Reviewed. ef1 12:45 Gallbladder US Reviewed. ef1 12:46 BED REQUEST+ADM ordered. EDMS 13:00 morphine 4 mg IVP once ordered. ef1 13:20 Admission Orders was scanned into [employer] and attached to record. [email or web address] 14:27 T-Sheet-- Draft Copy was scanned into [employer] and attached to record. gb Administered Medications: :56 Drug: NS 0.9% 1000 ml [sodium chloride 0.9 % intravenous solution] Route: IV; Rate: mcp bolus; Site: right antecubital; :56 Drug: Ondansetron 4 mg [ondansetron HCl 2 mg/mL intravenous solution (2 mL)] Route: mcp IVP; Site: right antecubital; :56 Drug: ketorolac 30 mg [ketorolac 30 mg/mL (1 mL) injection solution (1 mL)] Route: IVP; mcp Site: right antecubital; 13:08 Drug: Piperacillin-Tazobactam 3.375 grams [piperacillin-tazobactam 3.375 gram ms18 intravenous solution] Route: IVPB; Infused Over: 30 mins; Site: right antecubital; Signatures: Dispatcher [employer] [place] Mckay RN RN [facility] Wendy Newman, Parvez [facility] Esha Lofton RN RN kr3 Nazanin Jiménez, PADmitryC PA-C ef1 Garrett Garsia jml1 Isaias Yi mm15 Malathi Lopez RN RN ms18 Odette Maier RN [facility] The chart was reviewed and I authenticate all verbal orders and agree with the evaluation and treatment provided.Attachments: 10:18 [facility] Payment Agreement mm15 13:20 Admission Orders jml1 14:27 T-Sheet-- Draft Copy gb Chart Complete MTDD
--- NOTE | 2016-03-24 14:29 | EDDOCDS ---
Nurse's Notes [facility] Name: Con Monte Age: 30 yrs Sex: Male : 1985 Arrival Date: 03/22/2016 Time: 08:30 Bed I4 / M4 Private MD: Diagnosis: Acute appendicitis;Upper abdominal pain, unspecified-Gallbladder sludge on Ultrasound Presentation: 03/22 08:54 Presenting complaint: Patient states: abdominal pain for more than 5 hours. Risk kr3 factors: the patient reports not having a history of previous torsion. Adult Sepsis Screening: The patient does not have new or worsening altered mentation. Patient's respiratory rate is less than 22. Systolic blood pressure is greater than 100. Patient has a qSOFA score of 0- Negative Sepsis Screen. Suicide/Homicide risk assessment- the patient denies having any suicidal and/or homicidal ideations and does not present with any other emotional, behavioral or mental health complaints. Status: Patient is not a registered nurse surgical services or dependent. Transition of care: patient was not received from another setting of care. 08:54 Acuity: POOL Level 3 kr3 08:54 Method Of Arrival: Walkin/Carried/Asstd kr3 Triage Assessment: 08:57 General: Appears in no apparent distress, comfortable, Behavior is cooperative. Pain: kr3 Location: right upper quadrant Pain currently is 6 out of 10 on a pain scale. HIV screening NA for this visit Offered previously. Neurological: No deficits noted. GI: Denies nausea, vomiting. Derm: Skin is normal. Historical: - Allergies: no known allergies; - Home Meds: 1. 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 No barriers to communication noted, The patient speaks fluent Ethiopian, Speaks appropriately for age. - Family history: Not pertinent. - : The pt / caregiver states he / she is not on anticoagulants. Home medication list is obtained from the patient. - Exposure Risk Screening:: None identified. Screenin:57 Screening information is obtained from the patient. Primary language is Ethiopian. Fall jam1 risk: No risks identified. Assistance ADL's: requires no assistance with activities of daily living. Abuse/DV Screen: The patient / caregiver reports he/she is: not in a situation that causes fear, pain or injury. Nutritional screening: No deficits noted. Exposure Risk Screening: None identified. Advance Directives: Currently, there is no health care proxy. There is no active DNR order. There is no living will. There is no Power of Block Inspector. Advance directive information has not previously been placed in an [facility] medical record. Further advance directive information is declined. home support is adequate. Assessment: 11:56 General: Appears in no apparent distress, comfortable, Behavior is appropriate for age, ms18 cooperative. Pain: Denies pain. Neurological: Level of Consciousness is awake, alert, obeys commands, Oriented to person, place, time. Respiratory: Airway is patent Respiratory effort is even, unlabored. GI: Abdomen is non- distended. Derm: Skin is pink, warm & dry. 13:08 General: Dr. Mauricio in to see the pt at this time. Will continue to monitor pt. ms18 13:25 General: Appears in no apparent distress, Behavior is appropriate for age, cooperative. srm GI: Abdomen is non- distended Bowel sounds present X 4 quads. Abd is soft X 4 quads Abd is tender to palpation in right lower quadrant. Vital Signs: 08:57 BP 148 / 71; Pulse 90; Resp 16; Temp 99.6(O); Pulse Ox 97% on R/A; Weight 92.53 kg (R); kr3 Height 6 ft. 1 in. (185.42 cm) (R); 12:27 BP 117 / 72; Pulse 75; Resp 18; Temp 99.0; Pulse Ox 97% ; Pain 4/10; jam1 13:24 BP 138 / 87; Pulse 89; Resp 18; Temp 98.1; Pulse Ox 97% ; Pain 4/10; jam1 08:57 Body Mass Index 26.91 (92.53 kg, 185.42 cm) [facility] Vitals: 08:57 Log In Time: March 22, 2016 at 08:30. [facility] ED Course: 08:31 Patient visited by Isaias Yi. mm15 08:31 Patient moved to Waiting mm15 08:54 Patient moved to Triage 2 kr3 08:55 Triage Initiated 3 09:25 [facility] ef1 09:25 Cassie Lewis MD is Attending Physician. ef1 09:25 Patient visited by Naaznin Jiménez PA-C. ef1 09:44 Patient moved to I4 / M4 kr3 09:57 Pt greeted and oriented to ED. Patient advised of names of staff involved in care, jamRichard location of call plummer, wait times and NPO status. Patient has correct armband on for positive identification. Placed in gown. Bed in low position. Call light in reach. Side rails up X 1. Adult w/ patient. Door closed. 10:03 Urinalysis Sent. js13 10:03 Urine Culture Sent. js13 10:04 Inserted saline lock: 18 gauge in right antecubital area and blood collected. The js13 patient tolerated the procedure well. No procedures done that require assistance. Labs drawn. (by ED staff). Sent per order to lab. 10:18 [facility] Payment Agreement was scanned into [employer] and attached to record. mm15 10:20 Patient visited by Nazanin Jiménez PA-C. ef1 10:21 DIFFERENTIAL NO CHARGE Sent. js13 10:23 Patient moved to Ultrasound en 10:36 Patient visited by Nazanin Jiménez PA-C. ef1 10:39 Patient moved to I4 / M4 en 11:04 Gallbladder US Returned. EDMS 11:49 CT ABD & PELVIS: IV Contrast Only Returned. EDMS 11:56 Patient visited by Malathi Lopez RN. ms18 11:56 The patient / caregiver is instructed regarding the plan of care and ED course. ms18 Property :Personal belongings accompany Pt. 12:44 Patient visited by Nazanin Jiménez PA-C. ef1 12:54 Sorin Mauricio MD is Hospitalizing Provider. ef1 13:20 Patient visited by Garrett Garsia. jml1 13:20 Admission Orders was scanned into [employer] and attached to record. jml1 14:27 T-Sheet-- Draft Copy was scanned into [employer] and attached to record. gb Administered Medications: :56 Drug: NS 0.9% 1000 ml [sodium chloride 0.9 % intravenous solution] Route: IV; Rate: mcp bolus; Site: right antecubital; :56 Drug: Ondansetron 4 mg [ondansetron HCl 2 mg/mL intravenous solution (2 mL)] Route: mcp IVP; Site: right antecubital; 09:56 Drug: ketorolac 30 mg [ketorolac 30 mg/mL (1 mL) injection solution (1 mL)] Route: IVP; [facility] Site: right antecubital; 13:08 Drug: Piperacillin-Tazobactam 3.375 grams [piperacillin-tazobactam 3.375 gram ms18 intravenous solution] Route: IVPB; Infused Over: 30 mins; Site: right antecubital; Intake: 13:27 IV: 1000.00ml (NS); Total: 1000.00ml. srm Order Results: Lab Order: Amylase; SPEC'M 03/22/16 09:53 Test: AMYLASE; Value: 24; Range: 25-115; Abnormal: Below low normal; Units: U/L; Status: F Lab Order: Basic Metabolic Profile; SPEC'M 03/22/16 09:53 Test: GLUCOSE, FASTING; Value: 104; Range: 70-105; Units: MG/DL; Status: F Test: BLOOD UREA NITROGEN; Value: 12; Range: 7-18; Units: MG/DL; Status: F Test: CREATININE FOR GFR; Value: 1.08; Range: 0.70-1.30; Units: MG/DL; Status: F Test: GLOMERULAR FILTRATION RATE; Value: > 60.0; Range: >60; Status: F Test: SODIUM LEVEL; Value: 140; Range: 136-145; Units: MEQ/L; Status: F Test: POTASSIUM SERUM; Value: 4.1; Range: 3.5-5.1; Units: MEQ/L; Status: F Test: CHLORIDE LEVEL; Value: 103; Range: 98-107; Units: MEQ/L; Status: F Test: CARBON DIOXIDE LEVEL; Value: 29; Range: 21-32; Units: MEQ/L; Status: F Test: ANION GAP; Value: 8; Range: 8-16; Units: MEQ/L; Status: F Test: CALCIUM LEVEL; Value: 9.2; Range: 8.5-10.1; Units: MG/DL; Status: F Test Note: ; Units are mL/min/1.73 m2 Chronic Kidney Disease Staging per NKF: Stage I & II GFR >=60 Normal to Mildly Decreased Stage III GFR 30-59 Moderately Decreased Stage IV GFR 15-29 Severely Decreased Stage V GFR <15 Very Little GFR Left ESRD GFR <15 on INSTITUTIONAL COOK Lab Order: CBC with Diff; SPEC03/22/16 09:53 Test: WHITE BLOOD COUNT; Value: 16.6; Range: 4.0-10.0; Abnormal: Above high normal; Units: K/mm3; Status: F Test: RED BLOOD COUNT; Value: 5.75; Range: 4.30-6.10; Units: M/mm3; Status: F Test: HEMOGLOBIN; Value: 16.3; Range: 14.0-18.0; Units: g/dl; Status: F Test: HEMATOCRIT; Value: 47.0; Range: 42.0-52.0; Units: %; Status: F Test: MEAN CORPUSCULAR VOLUME; Value: 81.8; Range: 80.0-96.0; Units: fl; Status: F Test: MEAN CORPUSCULAR HEMOGLOBIN; Value: 28.4; Range: 27.0-33.0; Units: pg; Status: F Test: MEAN CORPUSCULAR HGB CONC; Value: 34.7; Range: 32.0-36.5; Units: g/dl; Status: F Test: RED CELL DISTRIBUTION WIDTH; Value: 11.8; Range: 11.5-14.5; Units: %; Status: F Test: PLATELET COUNT, AUTOMATED; Value: 328; Range: 150-450; Units: k/mm3; Status: F Test: NEUTROPHILS; Value: 84; Range: 35-75; Abnormal: Above high normal; Units: %; Status: F Test: LYMPHOCYTES; Value: 12; Range: 16-52; Abnormal: Below low normal; Units: %; Status: F Test: MONOCYTES; Value: 4; Range: 0-8; Units: %; Status: F Test: RBC MORPHOLOGY; Value: NORMAL; Status: F Lab Order: Lipase; 03/22/16 09:53 Test: LIPASE; Value: 106; Range: 73-393; Units: U/L; Status: F Lab Order: Liver Profile; 03/22/16 09:53 Test: AST/SGOT; Value: 19; Range: 15-37; Units: U/L; Status: F Test: ALT/SGPT; Value: 45; Range: 12-78; Units: U/L; Status: F Test: ALKALINE PHOSPHATASE; Value: 91; Range: 45-117; Units: U/L; Status: F Test: BILIRUBIN,TOTAL; Value: 0.9; Range: 0.2-1.0; Units: MG/DL; Status: F Test: BILIRUBIN,DIRECT; Value: 0.1; Range: 0.0-0.2; Units: MG/DL; Status: F Test: TOTAL PROTEIN; Value: 7.8; Range: 6.4-8.2; Units: GM/DL; Status: F Test: ALBUMIN; Value: 4.5; Range: 3.2-5.2; Units: GM/DL; Status: F Test: ALBUMIN/GLOBULIN RATIO; Value: 1.36; Range: 1.00-1.93; Status: F Lab Order: Urinalysis; SPEC'M 03/22/16 09:53 Test: APPEARANCE, URINE; Value: CLEAR; Range: CLEAR; Status: F Test: COLOR, URINE; Value: YELLOW; Range: YELLOW; Status: F Test: PH,URINE; Value: 5.0; Range: 5.0-9.0; Units: UNITS; Status: F Test: SPECIFIC GRAVITY URINE AUTO; Value: 1.012; Range: 1.002-1.035; Status: F Test: PROTEIN, URINE AUTO; Value: NEGATIVE; Range: NEGATIVE; Units: mg/dL; Status: F Test: GLUCOSE, URINE (UA) AUTO; Value: NEGATIVE; Range: NEGATIVE; Units: mg/dL; Status: F Test: KETONE, URINE AUTO; Value: NEGATIVE; Range: NEGATIVE; Units: mg/dL; Status: F Test: UROBILINOGEN, URINE AUTO; Value: 0.2; Range: 0.0-2.0; Units: mg/dL; Status: F Test: BILIRUBIN, URINE AUTO; Value: NEGATIVE; Range: NEGATIVE; Status: F Test: NITRITE, URINE AUTO; Value: NEGATIVE; Range: NEGATIVE; Status: F Test: LEUKOCYTE ESTERASE, URINE AUTO; Value: NEGATIVE; Range: NEGATIVE; Status: F Test: BLOOD, URINE BLOOD; Value: NEGATIVE; Range: NEGATIVE; Status: F Test: WBC, URINE AUTO; Value: 0; Range: 0-3; Units: /HPF; Status: F Test: RBC, URINE AUTO; Value: 0; Range: 0-3; Units: /HPF; Status: F Test: BACTERIA, URINE AUTO; Value: NEGATIVE; Range: NEGATIVE; Status: F Test: SQUAMOUS EPITHELIAL CELL UR AU; Value: 0; Range: 0-6; Units: /HPF; Status: F Test: HYALINE CAST, URINE AUTO; Value: 0; Range: 0-1; Units: /LPF; Status: F Lab Order: PLATELET ESTIMATE; SPEC'M 03/22/16 09:53 Test: PLATELET ESTIMATE; Value: NORMAL; Range: NORMAL; Status: F Radiology Order: CT ABD & PELVIS: IV Contrast Only Test: CT ABD & PELVIS: IV Contrast Only REASON FOR EXAMINATION: Appendicitis; CT STUDY OF THE ABDOMEN AND PELVIS WITH IV BUT WITHOUT ORAL CONTRAST:; ; HISTORY: Appendicitis.; ; CT contrast dose: 100 mL of Isovue 370 is administered intravenously.; ; CT FINDINGS: Digital preliminary strategic manager radiograph is unremarkable. The lung; bases are clear on axial CT slices. The liver and the spleen are normal in size; and homogeneous in texture. No adrenal lesion is seen on either side. The; gallbladder has a Phrygian cap morphology but is otherwise intact. No pancreatic; abnormality is seen. The kidneys enhance symmetrically are morphologically; intact. Normal caliber aorta is seen. No retroperitoneal mass or adenopathy is; observed. The appendix is abnormal showing mural thickening, air and fluid; dilation of its lumen, a small enterolith, and periappendiceal inflammation; consistent with acute appendicitis. The appendix is located in the mid abdomen; in this patient just beneath the inferior edge of the liver. There are two or; three adjacent mesenteric lymph nodes. There is no evidence of free; intraperitoneal air or abscess.; ; No abdominal wall defect is seen. Small and large intestinal bowel loops are; otherwise unremarkable. Urinary bladder, seminal vesicles and prostate are; unremarkable. No bony destructive lesion is seen.; ; IMPRESSION:; CT findings of acute appendicitis. Appendix in the right mid abdomen. No abscess; or free air seen.; ; ; ; ; Unreviewed; Radiology Order: Gallbladder US Test: Gallbladder US REASON FOR EXAMINATION: Biliary Colic; Right upper quadrant sonography:; ; History: Biliary colic.; ; Comparison study: No comparison study.; ; Findings: Scanning through the right upper quadrant of the abdomen demonstrates a; normal sized, thin-walled gallbladder without evidence of stone or polyp. Some; sludge is visible within the gallbladder lumen. Common bile duct is normal; measuring 0.5 cm in greatest diameter. No focal liver lesion is seen. Liver; size is normal. No pancreatic abnormality is observed. No right renal; abnormality is seen. There is no evidence of ascites. The right kidney measures; 11.7 x 5.7 x 5.2 cm.; ; Impression:; ; Some sludge in the gallbladder no stones. Otherwise negative right upper; quadrant sonography.; ; ; Signed by; Omar Fuentes MD 03/22/2016 10:42 A; Outcome: 12:54 Decision to Hospitalize by Provider. ef1 13:27 Discharge Assessment: Patient awake, alert and oriented x 3. No cognitive and/or [facility] functional deficits noted. Patient verbalized understanding of disposition instructions. patient administered narcotics -. 13:27 Discharge Assessment: patient administered narcotics - yes. Patient was admitted to the [facility] hospital or transferred to another facility. The following High Risk Discharge criteria are identified: None. Admitted to OR accompanied by nurse, accompanied by tech, via stretcher, with chart. Condition: stable. CT Study completed. 13:28 Patient left the ED. [facility] Signatures: Dispatcher [employer] EDMS Maine Paul, RN SESAR [facility] Odette Maier RN RN Janna Gupta, HARVINDER IRON ERECTOR jam1 Wendy Newman, Parvez Reg gb Esha LoftonRN RN kr3 Nazanin Jiménez, PA-C PA-C ef1 Garrett Garsia jml1 Leora Payton,SESAR RN js13 Isaias Yi mm15 Malathi Lopez RN RN ms18 Jana Escalera Chart Complete MTDD
== END 2016-03-23 10:22 | disposition home or self-care (01) ==
LOC: M ED 08:30 → M SDC 13:33 → M PED 16:08 → M SDC 03-23 10:22
PROVIDERS: ATTEND Surgery
DX: K35.80 Unspecified acute appendicitis (principal); F17.290 Nicotine dependence, other tobacco product, uncomplicated
CPT/HCPCS: 36415; 44970; 74177; 76705; 80048; 80076; 81001; 82150; 83690; 85025; 87086; 88304; 96374; 96375; 99285; J1100; J1885; J2250; J2405; J2543; J2710; J3010; Q9967

== ENCOUNTER 2016-03-25 22:09 | Emergency (ER) | payer BC ==
[~2016-03-25] VITALS: Ht 185.4 cm; Wt 92.5 kg
[2016-03-25] MEDS ORDERED: METHYLNALTREXONE BROMIDE 12 MG/0.6 ML VIAL (RELISTOR) SC SCH (23:15)
--- NOTE | 2016-03-26 00:19 | EDDOCDS ---
Physician Documentation [facility] Name: Con Monte Age: 30 yrs Sex: Male : 1985 Arrival Date: 03/25/2016 Time: 22:09 Bed PD Private MD: Rafa Gregory Disposition: 03/26/16 00:09 Discharged to Home/Self Care. Impression: Constipation - OPIOD INDUCED POST SURGERY. - Condition is Stable. - Discharge Instructions: Constipation, . - Prescriptions for Colace 100 mg Oral Tablet - take 1 tablet by ORAL route every 12 hours; 14 tablet. Miralax 17 gram/dose - take 17 gram by ORAL route once daily As needed dilute in 8 ounces of water or juice; 1 bottle. - Medication Reconciliation, Local Pharmacy Hours form. - Follow up: Private Physician; When: 2 - 3 days; Reason: Recheck today's complaints, Continuance of care. - Problem is new. - Symptoms have improved. - Notes: USE MEDICATIONS INSTRUCTED, FOLLOW UP WITH YOUR DOCTOR NEXT WEEK, RETURN TO THE ER IF THE SYMPTOMS WORSEN OR BECOME CONCERNING Historical: - Allergies: no known allergies; - Home Meds: 1. Vicodin 5-500 mg Oral tab as needed 2. amoxicillin 500 mg Oral tab 1 tab 2 times per day - PMHx: none; - PSHx: Tonsillectomy; Adenoidectomy; Hernia repair; Myringotomy; Appendectomy; - Social history: Smoking status: Patient states was never smoker of tobacco. No barriers to communication noted, The patient speaks fluent [place]. - Family history: Not pertinent. - : The pt / caregiver states he / she is not on anticoagulants. Home medication list is obtained from the patient. - Exposure Risk Screening:: None identified. Vital Signs: 03/25 22:11 BP 142 / 82; Pulse 68; Resp 18 S; Temp 97.6(O); Pulse Ox 98% on R/A; Weight 92.53 kg / gr2 203.99 lbs (R); Height 6 ft. 1 in. (185.42 cm) (R); Pain 8/10; 03/26 00:16 BP 135 / 88; Pulse 50; Resp 18; Temp 98.9(TE); Pulse Ox 95% on R/A; Pain 2/10; mcp 01/27 22:11 Body Mass Index 26.91 (92.53 kg, 185.42 cm) gr2 MDM: 03/25 22:29 Abdomen, Flat\E\Upright,PA Chest Ordered. EDMS 22:51 Financial registration complete. zo 22:55 [facility] Payment Agreement was scanned into [employer] and attached to record. zo 22:56 Methylnaltrexone 12 mg Sub-Q once; Must be obtained from Pharmacy ordered. ck7 Administered Medications: 23:24 Drug: Methylnaltrexone 12 mg [methylnaltrexone 12 mg/0.6 mL subcutaneous solution (0.6 ld5 mL)] Route: Sub-Q; Site: left lower abdomen; Signatures: Dispatcher [employer] EDMS Odette Maier RN RN Pippa Awan Rosemary, RN RN rs3 Joe Baltazar, RPA-C RPA-Cck7 Carlyn Bauer RN ld5 The chart was reviewed and I authenticate all verbal orders and agree with the evaluation and treatment provided.Attachments: 22:55 [facility] Payment Agreement zo MTDD
--- NOTE | 2016-03-26 00:19 | EDDOCDS ---
Nurse's Notes [facility] Name: Con Monte Age: 30 yrs Sex: Male : 1985 Arrival Date: 03/25/2016 Time: 22:09 Bed PD Private MD: Rafa Gregory Diagnosis: Constipation-OPIOD INDUCED POST SURGERY Presentation: 03/25 22:13 Presenting complaint: Patient states: constipation and abdominal pain today. Had rs3 appendectomy on Monday. Was on Vicodin for three days. Adult Sepsis Screening: The patient does not have new or worsening altered mentation. Patient's respiratory rate is less than 22. Systolic blood pressure is greater than 100. Patient has a qSOFA score of 0- Negative Sepsis Screen. Suicide/Homicide risk assessment- the patient denies having any suicidal and/or homicidal ideations and does not present with any other emotional, behavioral or mental health complaints. Status: Patient is not a family service worker or dependent. Transition of care: patient was not received from another setting of care. 22:13 Acuity: POOL Level 4 rs3 22:13 Method Of Arrival: Walkin/Carried/Asstd rs3 Triage Assessment: 22:18 General: Appears in no apparent distress. Pain: Location: abdomen. HIV screening NA for rs3 this visit Offered previously. Historical: - Allergies: no known allergies; - Home Meds: 1. Vicodin 5-500 mg Oral tab as needed 2. amoxicillin 500 mg Oral tab 1 tab 2 times per day - PMHx: none; - PSHx: Tonsillectomy; Adenoidectomy; Hernia repair; Myringotomy; Appendectomy; - Social history: Smoking status: Patient states was never smoker of tobacco. No barriers to communication noted, The patient speaks fluent Guamanian. - Family history: Not pertinent. - : The pt / caregiver states he / she is not on anticoagulants. Home medication list is obtained from the patient. - Exposure Risk Screening:: None identified. Screenin/28 00:17 Screening information is obtained from the patient. Fall risk: No risks identified. mcp Assistance ADL's: requires no assistance with activities of daily living. Abuse/DV Screen: The patient / caregiver reports he/she is: not in a situation that causes fear, pain or injury. Nutritional screening: No deficits noted. Advance Directives: There is no active DNR order. home support is adequate. Assessment: 03/25 23:25 General: Appears in no apparent distress, Behavior is cooperative. General: Pt laying ld5 in bed watching TV. Medicated per orders. Will continue to monitor. Pain: Location: abdomen. Neurological: Level of Consciousness is awake, alert. Respiratory: Airway is patent Respiratory effort is even, unlabored. Derm: surgical lac sites to abdomen. 03/26 00:16 General: Appears comfortable, Behavior is cooperative. General: Pt states had large mcp formed stool. Pain: Location: abdomen Pain currently is 2 out of 10 on a pain scale. Neurological: No deficits noted. Respiratory: No deficits noted. Derm: Skin is pink, warm & dry. Vital Signs: 03/25 22:11 BP 142 / 82; Pulse 68; Resp 18 S; Temp 97.6(O); Pulse Ox 98% on R/A; Weight 92.53 kg gr2 (R); Height 6 ft. 1 in. (185.42 cm) (R); Pain 8/10; 03/26 00:16 BP 135 / 88; Pulse 50; Resp 18; Temp 98.9(TE); Pulse Ox 95% on R/A; Pain 2/10; mcp 03/25 22:11 Body Mass Index 26.91 (92.53 kg, 185.42 cm) gr2 Vitals: 03/25 22:11 Log In Time: March 25, 2016 at 22:11. gr2 ED Course: 22:11 Patient visited by Miguel Trujillo. gr2 22:11 NO PRIMARY PHYSICIAN, . is Private Physician. gr2 22:11 [facility] is Private Physician. gr2 22:11 Patient moved to Waiting gr2 22:13 Patient visited by Miguel Trujillo. gr2 22:13 Patient moved to Pre RCE gr2 22:16 Triage Initiated rs3 22:18 Patient moved to Triage 1 rs3 22:19 Joe Baltazar RPA-C is PHCP. ck7 22:19 Alexi Bajwa DO is Attending Physician. ck7 22:19 Patient visited by Joe Baltazar RPA-C. ck7 22:33 Patient moved to PD [facility] 22:51 Patient visited by Joe Baltazar RPA-C. ck7 22:55 [facility] Payment Agreement was scanned into [employer] and attached to record. zo 23:45 Patient visited by Joe Baltazar RPA-C. 7 03/26 00:17 The patient / caregiver is instructed regarding the plan of care and ED course. Patient mcp has correct armband on for positive identification. Bed in low position. Call light in reach. Adult w/ patient. 00:17 No IV's were initiated during this patient's visit. No procedures done that require mcp assistance. Administered Medications: 03/25 23:24 Drug: Methylnaltrexone 12 mg [methylnaltrexone 12 mg/0.6 mL subcutaneous solution (0.6 ld5 mL)] Route: Sub-Q; Site: left lower abdomen; Order Results: There are currently no results for this order. Outcome: 03/26 00:09 Discharge ordered by Provider. 00:17 Discharge Assessment: patient administered narcotics - no. The following High Risk mcp Discharge criteria are identified: None. Discharged to home ambulatory, with significant other. Condition: stable. Discharge instructions given to patient, Instructed on discharge instructions, follow up and referral plans. medication usage, diet, Demonstrated understanding of instructions, medications, Pt was receptive of discharge instructions/ teaching. Prescriptions given X 2. No special radiology studies were completed. Property sent home with patient. 00:18 Patient left the ED. [facility] Signatures: Odette Maier RN RN mcp Olin, Zoeann zo Soosairaj, Rosemary, RN RN rs3 Carlyn Bauer RN RN ld5 Joe Baltazar RPA-C RPA-Cck7 Miguel Trujillo gr2 MTDD
--- NOTE | 2016-03-28 01:19 | EDDOCDS ---
Physician Documentation [facility] Name: Con Monte Age: 30 yrs Sex: Male : 1985 Arrival Date: 03/25/2016 Time: 22:09 Bed PD Private MD: Rafa Gregory Disposition: 03/26/16 00:09 Discharged to Home/Self Care. Impression: Constipation - OPIOD INDUCED POST SURGERY. - Condition is Stable. - Discharge Instructions: Constipation, . - Prescriptions for Colace 100 mg Oral Tablet - take 1 tablet by ORAL route every 12 hours; 14 tablet. Miralax 17 gram/dose - take 17 gram by ORAL route once daily As needed dilute in 8 ounces of water or juice; 1 bottle. - Medication Reconciliation, Local Pharmacy Hours form. - Follow up: Private Physician; When: 2 - 3 days; Reason: Recheck today's complaints, Continuance of care. - Problem is new. - Symptoms have improved. - Notes: USE MEDICATIONS INSTRUCTED, FOLLOW UP WITH YOUR DOCTOR NEXT WEEK, RETURN TO THE ER IF THE SYMPTOMS WORSEN OR BECOME CONCERNING Historical: - Allergies: no known allergies; - Home Meds: 1. Vicodin 5-500 mg Oral tab as needed 2. amoxicillin 500 mg Oral tab 1 tab 2 times per day - PMHx: none; - PSHx: Tonsillectomy; Adenoidectomy; Hernia repair; Myringotomy; Appendectomy; - Social history: Smoking status: Patient states was never smoker of tobacco. No barriers to communication noted, The patient speaks fluent Lithuanian. - Family history: Not pertinent. - : The pt / caregiver states he / she is not on anticoagulants. Home medication list is obtained from the patient. - Exposure Risk Screening:: None identified. Vital Signs: 03/25 22:11 BP 142 / 82; Pulse 68; Resp 18 S; Temp 97.6(O); Pulse Ox 98% on R/A; Weight 92.53 kg / gr2 203.99 lbs (R); Height 6 ft. 1 in. (185.42 cm) (R); Pain 8/10; 03/26 00:16 BP 135 / 88; Pulse 50; Resp 18; Temp 98.9(TE); Pulse Ox 95% on R/A; Pain 2/10; mcp 01/27 22:11 Body Mass Index 26.91 (92.53 kg, 185.42 cm) gr2 MDM: 03/25 22:29 Abdomen, Flat\E\Upright,PA Chest Ordered. EDMS 22:51 Financial registration complete. zo 22:55 [facility], [facility] Payment Agreement was scanned into [employer] and attached to record. zo 22:56 Methylnaltrexone 12 mg Sub-Q once; Must be obtained from Pharmacy ordered. ck7 03/26 06:40 T-Sheet-- Draft Copy was scanned into [employer] and attached to record. se Administered Medications: 03/25 23:24 Drug: Methylnaltrexone 12 mg [methylnaltrexone 12 mg/0.6 mL subcutaneous solution (0.6 ld5 mL)] Route: Sub-Q; Site: left lower abdomen; Signatures: Dispatcher [employer] EDOdette Elliott, RN RN Pippa Awan Rosemary, RN RN rs3 Joe Baltazar, KATJA-C RPA-Cck7 Shelly Acosta Laura RN ld5 The chart was reviewed and I authenticate all verbal orders and agree with the evaluation and treatment provided.Attachments: 22:55 [facility], [facility] Payment Agreement zo 03/26 06:40 T-Sheet-- Draft Copy [facility] Chart Complete MTDD
--- NOTE | 2016-03-28 01:19 | EDDOCDS ---
Physician Documentation [facility] Name: Con Monte Age: 30 yrs Sex: Male : 1985 Arrival Date: 03/25/2016 Time: 22:09 Bed PD Private MD: Rafa Gregory Disposition: 03/26/16 00:09 Discharged to Home/Self Care. Impression: Constipation - OPIOD INDUCED POST SURGERY. - Condition is Stable. - Discharge Instructions: Constipation, . - Prescriptions for Colace 100 mg Oral Tablet - take 1 tablet by ORAL route every 12 hours; 14 tablet. Miralax 17 gram/dose - take 17 gram by ORAL route once daily As needed dilute in 8 ounces of water or juice; 1 bottle. - Medication Reconciliation, Local Pharmacy Hours form. - Follow up: Private Physician; When: 2 - 3 days; Reason: Recheck today's complaints, Continuance of care. - Problem is new. - Symptoms have improved. - Notes: USE MEDICATIONS INSTRUCTED, FOLLOW UP WITH YOUR DOCTOR NEXT WEEK, RETURN TO THE ER IF THE SYMPTOMS WORSEN OR BECOME CONCERNING Historical: - Allergies: no known allergies; - Home Meds: 1. Vicodin 5-500 mg Oral tab as needed 2. amoxicillin 500 mg Oral tab 1 tab 2 times per day - PMHx: none; - PSHx: Tonsillectomy; Adenoidectomy; Hernia repair; Myringotomy; Appendectomy; - Social history: Smoking status: Patient states was never smoker of tobacco. No barriers to communication noted, The patient speaks fluent [place]. - Family history: Not pertinent. - : The pt / caregiver states he / she is not on anticoagulants. Home medication list is obtained from the patient. - Exposure Risk Screening:: None identified. Vital Signs: 03/25 22:11 BP 142 / 82; Pulse 68; Resp 18 S; Temp 97.6(O); Pulse Ox 98% on R/A; Weight 92.53 kg / gr2 203.99 lbs (R); Height 6 ft. 1 in. (185.42 cm) (R); Pain 8/10; 03/26 00:16 BP 135 / 88; Pulse 50; Resp 18; Temp 98.9(TE); Pulse Ox 95% on R/A; Pain 2/10; mcp 01/27 22:11 Body Mass Index 26.91 (92.53 kg, 185.42 cm) gr2 MDM: 03/25 22:29 Abdomen, Flat\E\Upright,PA Chest Ordered. EDMS 22:51 Financial registration complete. zo 22:55 PENDING SALE TO [facility] Payment Agreement was scanned into [employer] and attached to record. zo 22:56 Methylnaltrexone 12 mg Sub-Q once; Must be obtained from Pharmacy ordered. ck7 03/26 06:40 T-Sheet-- Draft Copy was scanned into [employer] and attached to record. se Administered Medications: 03/25 23:24 Drug: Methylnaltrexone 12 mg [methylnaltrexone 12 mg/0.6 mL subcutaneous solution (0.6 ld5 mL)] Route: Sub-Q; Site: left lower abdomen; Signatures: Dispatcher [employer] EDOdette Elliott, RN RN Pippa Awan Rosemary, RN RN rs3 Joe Baltazar, KATJA-C RPA-Cck7 Shelly Acosta Laura RN ld5 The chart was reviewed and I authenticate all verbal orders and agree with the evaluation and treatment provided.Attachments: 22:55 PENDING SALE TO [facility] Payment Agreement zo 03/26 06:40 T-Sheet-- Draft Copy [facility] Chart Complete MTDD
--- NOTE | 2016-03-28 01:19 | EDDOCDS ---
Nurse's Notes [facility] Name: Con Monte Age: 30 yrs Sex: Male : 1985 Arrival Date: 03/25/2016 Time: 22:09 Bed PD Private MD: Rafa Gregory Diagnosis: Constipation-OPIOD INDUCED POST SURGERY Presentation: 03/25 22:13 Presenting complaint: Patient states: constipation and abdominal pain today. Had rs3 appendectomy on Monday. Was on Vicodin for three days. Adult Sepsis Screening: The patient does not have new or worsening altered mentation. Patient's respiratory rate is less than 22. Systolic blood pressure is greater than 100. Patient has a qSOFA score of 0- Negative Sepsis Screen. Suicide/Homicide risk assessment- the patient denies having any suicidal and/or homicidal ideations and does not present with any other emotional, behavioral or mental health complaints. Status: Patient is not a human service technician or dependent. Transition of care: patient was not received from another setting of care. 22:13 Acuity: POOL Level 4 rs3 22:13 Method Of Arrival: Walkin/Carried/Asstd rs3 Triage Assessment: 22:18 General: Appears in no apparent distress. Pain: Location: abdomen. HIV screening NA for rs3 this visit Offered previously. Historical: - Allergies: no known allergies; - Home Meds: 1. Vicodin 5-500 mg Oral tab as needed 2. amoxicillin 500 mg Oral tab 1 tab 2 times per day - PMHx: none; - PSHx: Tonsillectomy; Adenoidectomy; Hernia repair; Myringotomy; Appendectomy; - Social history: Smoking status: Patient states was never smoker of tobacco. No barriers to communication noted, The patient speaks fluent Belarusian. - Family history: Not pertinent. - : The pt / caregiver states he / she is not on anticoagulants. Home medication list is obtained from the patient. - Exposure Risk Screening:: None identified. Screenin/28 00:17 Screening information is obtained from the patient. Fall risk: No risks identified. mcp Assistance ADL's: requires no assistance with activities of daily living. Abuse/DV Screen: The patient / caregiver reports he/she is: not in a situation that causes fear, pain or injury. Nutritional screening: No deficits noted. Advance Directives: There is no active DNR order. home support is adequate. Assessment: 03/25 23:25 General: Appears in no apparent distress, Behavior is cooperative. General: Pt laying ld5 in bed watching TV. Medicated per orders. Will continue to monitor. Pain: Location: abdomen. Neurological: Level of Consciousness is awake, alert. Respiratory: Airway is patent Respiratory effort is even, unlabored. Derm: surgical lac sites to abdomen. 03/26 00:16 General: Appears comfortable, Behavior is cooperative. General: Pt states had large mcp formed stool. Pain: Location: abdomen Pain currently is 2 out of 10 on a pain scale. Neurological: No deficits noted. Respiratory: No deficits noted. Derm: Skin is pink, warm & dry. Vital Signs: 03/25 22:11 BP 142 / 82; Pulse 68; Resp 18 S; Temp 97.6(O); Pulse Ox 98% on R/A; Weight 92.53 kg gr2 (R); Height 6 ft. 1 in. (185.42 cm) (R); Pain 8/10; 03/26 00:16 BP 135 / 88; Pulse 50; Resp 18; Temp 98.9(TE); Pulse Ox 95% on R/A; Pain 2/10; mcp 03/25 22:11 Body Mass Index 26.91 (92.53 kg, 185.42 cm) gr2 Vitals: 03/25 22:11 Log In Time: March 25, 2016 at 22:11. gr2 ED Course: 22:11 Patient visited by Miguel Trujillo. gr2 22:11 NO PRIMARY PHYSICIAN, . is Private Physician. gr2 22:11 [facility] is Private Physician. gr2 22:11 Patient moved to Waiting gr2 22:13 Patient visited by Miguel Trujillo. gr2 22:13 Patient moved to Pre RCE gr2 22:16 Triage Initiated rs3 22:18 Patient moved to Triage 1 rs3 22:19 Joe Baltazar RPA-C is PHCP. ck7 22:19 Alexi Bajwa DO is Attending Physician. ck7 22:19 Patient visited by Joe Baltazar RPA-C. ck7 22:33 Patient moved to PD [facility] 22:51 Patient visited by Joe Baltazar RPA-C. ck7 22:55 [facility] Payment Agreement was scanned into [employer] and attached to record. zo 23:45 Patient visited by Joe Baltazar RPA-C. ck7 03/26 00:17 The patient / caregiver is instructed regarding the plan of care and ED course. Patient mcp has correct armband on for positive identification. Bed in low position. Call light in reach. Adult w/ patient. 00:17 No IV's were initiated during this patient's visit. No procedures done that require mcp assistance. 06:40 T-Sheet-- Draft Copy was scanned into [employer] and attached to record. [facility] Administered Medications: 03/25 23:24 Drug: Methylnaltrexone 12 mg [methylnaltrexone 12 mg/0.6 mL subcutaneous solution (0.6 ld5 mL)] Route: Sub-Q; Site: left lower abdomen; Order Results: There are currently no results for this order. Outcome: 03/26 00:09 Discharge ordered by Provider. 00:17 Discharge Assessment: patient administered narcotics - no. The following High Risk [facility] Discharge criteria are identified: None. Discharged to home ambulatory, with significant other. Condition: stable. Discharge instructions given to patient, Instructed on discharge instructions, follow up and referral plans. medication usage, diet, Demonstrated understanding of instructions, medications, Pt was receptive of discharge instructions/ teaching. Prescriptions given X 2. No special radiology studies were completed. Property sent home with patient. 00:18 Patient left the ED. [facility] Signatures: Odette Maier, RN Pippa Foster mcp, Rosemary, RN RN rs3 Carlyn Bauer RN RN ld5 Joe Baltazar RPA-C RPA-Cck7 Miguel Trujillo gr2 Shelly Acosta Chart Complete MTDD
--- NOTE | 2016-03-28 08:30 | REP ---
Acute abdominal series series including PA chest and supine upright abdomen: PA chest: Comparison is 2011. The lung henriquez are clear. Cardiac size is normal. The melvin, mediastinum, and bony thorax are. There is no free subdiaphragmatic air. No interval change. Impression: Negative PA chest. Abdomen, supine and upright views: Comparison is the CT abdomen and pelvis of 03/22/2016. The bowel gas pattern is normal. There is suspect there are surgical clips in the right lower quadrant. There are no calcifications. The skeletal structures and soft tissues are otherwise unremarkable. Impression: Normal bowel gas pattern. Probable right lower quadrant surgical clips. Signed by Dmitry Deluna MD 03/26/2016 08:52 A
== END 2016-03-26 00:18 | disposition home or self-care (01) ==
LOC: M ED 22:09
DX: K59.03 Drug induced constipation (principal); K91.89 Other postprocedural complications and disorders of digestive system

== ENCOUNTER → 2017-04-09 | Outpatient (CLI) | payer BC | LOC: M LRY 13:31 | DX: S62.304A Unspecified fracture of fourth metacarpal bone, right hand, initial encounter for closed fracture (principal); S62.306A Unspecified fracture of fifth metacarpal bone, right hand, initial encounter for closed fracture; M79.89 Other specified soft tissue disorders; X58.XXXA Exposure to other specified factors, initial encounter; Y93.9 Activity, unspecified | CPT/HCPCS: 73130 ==

== ENCOUNTER 2018-01-09 18:44 | Observation (INO) | payer BC ==
[2018-01-09] MEDS: MORPHINE 2 MG/ML 1ML SYRINGE (J2270) IV (20:00)
[2018-01-09] MEDS: THIAMINE HCL 200 MG/2 ML VIAL (J3411) IV (20:00)
[2018-01-09] MEDS: NS 500 ML IV (20:00)
[2018-01-09] MEDS: ONDANSETRON 4MG/2ML VIAL (J2405) IV (20:00)
[2018-01-09 20:50] LABS: BASO % 0.1 % (0.0-1.0); HEMATOCRIT 42.8 % (42.0-52.0); HEMOGLOBIN 14.7 g/dl (13.5-17.5); IMMATURE GRANULOCYTE % 0.5 % (0-3.0); LYMPH # 1.2 10^3/uL (1.5-4.5); LYMPH % 6.1 % (24.0-44.0); MEAN CORPUSCULAR HEMOGLOBIN 27.7 pg (27.0-33.0); MEAN CORPUSCULAR HGB CONC 34.3 g/dl (32.0-36.5); MEAN CORPUSCULAR VOLUME 80.8 fl (80.0-96.0); MONO % 4.8 % (0.0-5.0); NEUTROPHILS % 88.5 % (36.0-66.0); PLATELET COUNT, AUTOMATED 328 10^3/uL (150-450); RED CELL DISTRIBUTION WIDTH 11.9 % (11.5-14.5); WHITE BLOOD COUNT 20.3 10^3/uL (4.0-10.0)
[2018-01-09 21:28] LABS: ALBUMIN 4.1 GM/DL (3.2-5.2); ALBUMIN/GLOBULIN RATIO 1.64 (1.00-1.93); ALKALINE PHOSPHATASE 74 U/L (45-117); ALT/SGPT 29 U/L (12-78); ANION GAP 8 MEQ/L (8-16); AST/SGOT 21 U/L (7-37); BILIRUBIN,DIRECT 0.2 MG/DL (0.0-0.2); BILIRUBIN,TOTAL 0.5 MG/DL (0.2-1.0); BLOOD UREA NITROGEN 15 MG/DL (7-18); CALCIUM LEVEL 8.7 MG/DL (8.5-10.1); CARBON DIOXIDE LEVEL 27 MEQ/L (21-32); CHLORIDE LEVEL 106 MEQ/L (98-107); CPK CREATINE PHOSPHOKINASE 173 U/L (39-308); CREATININE FOR GFR 1.06 MG/DL (0.70-1.30); ETHYL ALCOHOL (ETHANOL) < 0.003 % (0.000-0.010); GLOMERULAR FILTRATION RATE > 60.0 (>60); GLUCOSE, FASTING 88 MG/DL (70-100); MB/CK RELATIVE INDEX 1.21 (< OR =4); POTASSIUM SERUM 3.9 MEQ/L (3.5-5.1); SODIUM LEVEL 141 MEQ/L (136-145); TOTAL PROTEIN 6.6 GM/DL (6.4-8.2); TROPONIN I < 0.02 NG/ML (< 0.10)
[2018-01-09 21:32] LABS: AMPHETAMINES LEVEL URINE NEGATIVE (NEGATIVE); BARBITURATES URINE NEGATIVE (NEGATIVE); BENZODIAZEPINES URINE NEGATIVE (NEGATIVE); CANNABINOIDS URINE POSITIVE (NEGATIVE); COCAINE METABOLITE URINE NEGATIVE (NEGATIVE); METHADONE URINE NEGATIVE (NEGATIVE); OPIATES URINE NEGATIVE (NEGATIVE); PHENCYCLIDINE URINE NEGATIVE (NEGATIVE)
[2018-01-09] MEDS: D5W MINI IV (23:45)
[2018-01-09] MEDS: ACYCLOVIR IV (23:45)
[2018-01-10] MEDS: NS 1,000 ML IV ×3 (02:32→23:26)
[2018-01-10] MEDS ORDERED: ACETAMINOPHEN TAB 650MG DOSE (2X325MG) PO (02:45)
[2018-01-10 07:21] LABS: BASO % 0.2 % (0.0-1.0); EOS # 0.1 10^3/uL (0.0-0.50); EOS % 0.5 % (0.0-3.0); HEMATOCRIT 40.7 % (42.0-52.0); HEMOGLOBIN 13.8 g/dl (13.5-17.5); IMMATURE GRANULOCYTE % 0.3 % (0-3.0); LYMPH # 3.2 10^3/uL (1.5-4.5); MEAN CORPUSCULAR HGB CONC 33.9 g/dl (32.0-36.5); MEAN CORPUSCULAR VOLUME 82.7 fl (80.0-96.0); MONO # 0.8 10^3/uL (0.0-0.8); MONO % 7.6 % (0.0-5.0); NEUTROPHILS # 6.9 10^3/uL (1.8-7.7); NEUTROPHILS % 62.4 % (36.0-66.0); PLATELET COUNT, AUTOMATED 297 10^3/uL (150-450); RED BLOOD COUNT 4.92 10^6/uL (4.30-6.10); RED CELL DISTRIBUTION WIDTH 12.2 % (11.5-14.5)
[2018-01-10 08:25] LABS: C REACTIVE PROTEIN QUANTITATIV < 0.30 MG/DL (0.00-0.30)
[2018-01-10 08:38] LABS: AMMONIA 33 uMOL/L (<32)
[2018-01-10 08:40] LABS: ANION GAP 5 MEQ/L (8-16); BLOOD UREA NITROGEN 10 MG/DL (7-18); CALCIUM LEVEL 8.5 MG/DL (8.5-10.1); CARBON DIOXIDE LEVEL 27 MEQ/L (21-32); CHLORIDE LEVEL 110 MEQ/L (98-107); CREATININE FOR GFR 0.96 MG/DL (0.70-1.30); GLOMERULAR FILTRATION RATE > 60.0 (>60); GLUCOSE, FASTING 93 MG/DL (70-100); POTASSIUM SERUM 3.7 MEQ/L (3.5-5.1); SODIUM LEVEL 142 MEQ/L (136-145)
[2018-01-10 09:31] LABS: VITAMIN B12 LEVEL 609 PG/ML (247-911)
[2018-01-11 06:41] LABS: BASO % 0.5 % (0.0-1.0); EOS # 0.2 10^3/uL (0.0-0.50); EOS % 2.2 % (0.0-3.0); HEMATOCRIT 42.6 % (42.0-52.0); HEMOGLOBIN 14.1 g/dl (13.5-17.5); IMMATURE GRANULOCYTE % 0.4 % (0-3.0); LYMPH # 3.2 10^3/uL (1.5-4.5); LYMPH % 38.5 % (24.0-44.0); MEAN CORPUSCULAR HEMOGLOBIN 27.6 pg (27.0-33.0); MEAN CORPUSCULAR HGB CONC 33.1 g/dl (32.0-36.5); MEAN CORPUSCULAR VOLUME 83.5 fl (80.0-96.0); MONO # 0.8 10^3/uL (0.0-0.8); NEUTROPHILS # 4.1 10^3/uL (1.8-7.7); NEUTROPHILS % 49.4 % (36.0-66.0); PLATELET COUNT, AUTOMATED 279 10^3/uL (150-450); WHITE BLOOD COUNT 8.3 10^3/uL (4.0-10.0)
[2018-01-11 06:59] LABS: ANION GAP 5 MEQ/L (8-16); BLOOD UREA NITROGEN 11 MG/DL (7-18); CALCIUM LEVEL 8.2 MG/DL (8.5-10.1); CARBON DIOXIDE LEVEL 26 MEQ/L (21-32); CHLORIDE LEVEL 110 MEQ/L (98-107); CREATININE FOR GFR 0.94 MG/DL (0.70-1.30); GLOMERULAR FILTRATION RATE > 60.0 (>60); GLUCOSE, FASTING 93 MG/DL (70-100); SODIUM LEVEL 141 MEQ/L (136-145)
[2018-01-11] MEDS: NS 1,000 ML IV (09:04)
== END 2018-01-11 16:07 | disposition home or self-care (01) ==
LOC: M ED INP 18:45 → M MSPAV 01-10 13:17 → M ED 18:44
DX: R41.3 Other amnesia (principal); D72.829 Elevated white blood cell count, unspecified; F12.90 Cannabis use, unspecified, uncomplicated
CPT/HCPCS: J0133

== ENCOUNTER → 2020-09-01 | Outpatient (CLI) | payer BC, MEDICAID, OTHER, SELFPAY ==
[~2020-09-01] MED LIST changes: +ALEV220T26 PO; +KELP150T PO; -NORC10TA2 PO; +NORC1TAB5 PO; +SELE100T6 PO; -VALA500T PO; +VALA500T5 PO; +VISI0.054 OU; +VITACHTA PO
--- NOTE | 2020-09-03 09:12 | EEG ---
ELECTROENCEPHALOGRAM DATE: 09/01/2020 DIAGNOSIS: Syncope. EEG# [id number] REFERRING PHYSICIAN: Carla Spnece MD HISTORY: The patient is a 34-year-old man with a history of passing out spell. This EEG was done to rule out epileptic potential. He is currently taking no medications. TECHNICAL DESCRIPTION: This digital electroencephalogram (EEG) was recorded by 21 scalp, ear, and two electrocardiogram (EKG) electrodes and was reviewed in bipolar and referential montages following reformatting in 10-20 international electrode placement system. INTERPRETATION: The patient was noted to be in awake and drowsy states during this EEG. Resting and awake background rhythm consisted of well-formed posterior dominant rhythm with anterior/posterior gradient comprising of 9 Hz alpha activity measuring 15-40 microvolts in amplitude which was symmetric and reactive to eye opening. Attenuation of posterior dominant rhythm was seen during transition to drowsiness. No sleep was achieved. Hyperventilation could not be performed. Photic stimulation remained unremarkable. No focal, lateralizing, or epileptiform abnormalities were seen. No relevant clinical activity was noted. CONCLUSION: This EEG in awake and drowsy states is within normal limits.
== END ==
LOC: M SLEEP 09:50
PROVIDERS: ATTEND Psychiatry & Neurology Neurology
DX: R55 Syncope and collapse (principal)

== ENCOUNTER → 2020-10-07 | Outpatient (CLI) | payer OTHER ==
[2020-10-07 16:06] LABS: BASO % 0.4 % (0.0-1.0); EOS # 0.1 10^3/uL (0.0-0.5); EOS % 1.2 % (0.0-3.0); HEMATOCRIT 43.4 % (42.0-52.0); HEMOGLOBIN 14.6 g/dl (13.5-17.5); LYMPH % 40.1 % (24.0-44.0); MEAN CORPUSCULAR HEMOGLOBIN 28.2 pg (27.0-33.0); MEAN CORPUSCULAR HGB CONC 33.6 g/dl (32.0-36.5); MEAN CORPUSCULAR VOLUME 83.9 fl (80.0-96.0); MONO # 0.8 10^3/uL (0.0-0.8); MONO % 7.9 % (2.0-8.0); NEUTROPHILS % 50.2 % (36.0-66.0); PLATELET COUNT, AUTOMATED 345 10^3/uL (150-450); RED BLOOD COUNT 5.17 10^6/uL (4.30-6.10)
[2020-10-07 16:32] LABS: ALT/SGPT 24 U/L (12-78); BILIRUBIN,TOTAL 0.5 MG/DL (0.2-1.0); BLOOD UREA NITROGEN 12 MG/DL (7-18); CALCIUM LEVEL 9.1 MG/DL (8.5-10.1); CARBON DIOXIDE LEVEL 29 MEQ/L (21-32); CHLORIDE LEVEL 107 MEQ/L (98-107); CHOLESTEROL LEVEL 185 MG/DL (<200); CHOLESTEROL RISK RATIO 4.404 (<5); CREATININE FOR GFR 0.91 MG/DL (0.70-1.30); GLOMERULAR FILTRATION RATE > 60.0 (>60); GLUCOSE, FASTING 84 MG/DL (70-100); HDL CHOLESTEROL 42 MG/DL (>40); LDL CHOLESTEROL 122 MG/DL (<100); NON-HDL-C 143 MG/DL; POTASSIUM SERUM 4.7 MEQ/L (3.5-5.1); SODIUM LEVEL 141 MEQ/L (136-145); TOTAL PROTEIN 6.6 GM/DL (6.4-8.2); TRIGLYCERIDES LEVEL 107 MG/DL (<150)
[2020-10-07 17:08] LABS: HEMOGLOBIN A1c 5.3 %
== END ==
LOC: M WUC 14:51
PROVIDERS: ATTEND Physician Assistant Medical
DX: R55 Syncope and collapse (principal)

== ENCOUNTER → 2020-10-09 | Outpatient (CLI) | payer OTHER ==
--- NOTE | 2020-10-09 16:32 | REP ---
INDICATION: SYNCOPE. COMPARISON: None. TECHNIQUE: Bilateral carotid artery duplex ultrasound. FINDINGS: Peak flow velocities: Right left Internal carotid artery 122 cm/sec 87.8 cm/sec Int. Carotid diastolic 23.1 cm/sec 26.3 cm/sec External carotid artery 89.5 cm/sec 106 cm/sec Common carotid artery 149 cm/sec 148 cm/sec ICA-CCA ratio 0.82 0.59 There is no visible atheromatous plaque. Peak flow velocities are normal. There is no evidence of stenosis on the right or the left by Doppler ultrasound. There is antegrade flow in the vertebral arteries bilaterally. IMPRESSION: There is no evidence of stenosis on the right or the left by Doppler ultrasound. <Electronically signed by Dmitry Deluna > 10/09/20 1703
== END ==
LOC: M RAD 15:42
PROVIDERS: ATTEND Physician Assistant Medical
DX: R55 Syncope and collapse (principal)

== ENCOUNTER → 2020-10-29 | Outpatient (CLI) | payer OTHER ==
[2020-10-29 16:32] LABS: BASO % 0.3 % (0.0-1.0); EOS # 0.1 10^3/uL (0.0-0.5); EOS % 1.2 % (0.0-3.0); HEMATOCRIT 45.7 % (42.0-52.0); HEMOGLOBIN 15.5 g/dl (13.5-17.5); LYMPH # 2.6 10^3/uL (1.5-5.0); MEAN CORPUSCULAR HEMOGLOBIN 28.4 pg (27.0-33.0); MEAN CORPUSCULAR HGB CONC 33.9 g/dl (32.0-36.5); MEAN CORPUSCULAR VOLUME 83.7 fl (80.0-96.0); MONO # 0.7 10^3/uL (0.0-0.8); MONO % 9.1 % (2.0-8.0); NEUTROPHILS # 4.2 10^3/uL (1.5-8.5); NEUTROPHILS % 55.1 % (36.0-66.0); PLATELET COUNT, AUTOMATED 345 10^3/uL (150-450); RED BLOOD COUNT 5.46 10^6/uL (4.30-6.10); WHITE BLOOD COUNT 7.7 10^3/uL (4.0-10.0)
[2020-10-29 17:12] LABS: ERYTHROCYTE SEDIMENTATION RATE 2 mm/hr (0-15)
== END ==
LOC: M WUC 14:36
PROVIDERS: ATTEND Physician Assistant Medical
DX: R55 Syncope and collapse (principal)

== ENCOUNTER → 2020-11-24 | Outpatient (CLI) | payer OTHER ==
--- NOTE | 2020-11-26 14:25 | SLEEPHOME ---
DATE: 11/24/2020 ORDERED BY: Fransisca Reyes home sleep testing was performed due to concern for the obstructive sleep apnea syndrome. For testing, a NIOX T3 respiratory monitoring device was used. Continuous record was made of pulse, oxygen saturation, air flow, chest and abdominal strain, and body position. There was 11 hours and 59 minutes of data reviewed. There was 7 hours and 28 minutes marked as time in bed. During the interval marked time in bed, there were 155 respiratory events identified of 10 seconds in duration or greater for a respiratory event index of 20.7. The events were primarily obstructive, but 52 mixed and central apneas were seen. Baseline pulse rate 53. Pulse rate ranged 40-97. Baseline saturation 94%. Saturations fell to 88%. Testing was performed in both the supine and nonsupine positions. IMPRESSION: Abnormal home sleep testing with repetitive respiratory events and oxygen desaturations to 88% with a respiratory event index of 20.7 is consistent with the obstructive sleep apnea syndrome. RECOMMENDATION: The patient should be encouraged to undergo formal sleep evaluation.
== END ==
LOC: M SLEEP HO 13:15
PROVIDERS: ATTEND Physician Assistant Medical
DX: R55 Syncope and collapse (principal)

== ENCOUNTER → 2021-10-28 | Outpatient (CLI) | payer OTHER, BC ==
[2021-10-28 11:42] LABS: BASO % 0.3 % (0.0-1.0); EOS # 0.1 10^3/uL (0.0-0.5); EOS % 1.4 % (0.0-3.0); HEMATOCRIT 48.9 % (42.0-52.0); HEMOGLOBIN 15.9 g/dl (13.5-17.5); LYMPH % 41.8 % (24.0-44.0); MEAN CORPUSCULAR HEMOGLOBIN 27.5 pg (27.0-33.0); MEAN CORPUSCULAR HGB CONC 32.5 g/dl (32.0-36.5); MEAN CORPUSCULAR VOLUME 84.5 fl (80.0-96.0); MONO # 0.7 10^3/uL (0.0-0.8); MONO % 7.5 % (2.0-8.0); NEUTROPHILS # 4.7 10^3/uL (1.5-8.5); NEUTROPHILS % 48.8 % (36.0-66.0); PLATELET COUNT, AUTOMATED 410 10^3/uL (150-450); RED BLOOD COUNT 5.79 10^6/uL (4.30-6.10); WHITE BLOOD COUNT 9.6 10^3/uL (4.0-10.0)
[2021-10-28 12:14] LABS: ALBUMIN 4.3 GM/DL (3.2-5.2); ALT/SGPT 25 U/L (12-78); BILIRUBIN,TOTAL 0.5 MG/DL (0.2-1.0); BLOOD UREA NITROGEN 11 MG/DL (7-18); CALCIUM LEVEL 9.6 MG/DL (8.5-10.1); CARBON DIOXIDE LEVEL 28 MEQ/L (21-32); CHLORIDE LEVEL 105 MEQ/L (98-107); CHOLESTEROL LEVEL 207 MG/DL (<200); CHOLESTEROL RISK RATIO 3.184 (<5); CREATININE FOR GFR 0.93 MG/DL (0.70-1.30); GLOMERULAR FILTRATION RATE > 60.0 (>60); GLUCOSE, FASTING 91 MG/DL (70-100); HDL CHOLESTEROL 65 MG/DL (>40); LDL CHOLESTEROL 132 MG/DL (<100); NON-HDL-C 142 MG/DL; POTASSIUM SERUM 4.6 MEQ/L (3.5-5.1); SODIUM LEVEL 138 MEQ/L (136-145); TOTAL PROTEIN 6.8 GM/DL (6.4-8.2); TRIGLYCERIDES LEVEL 51 MG/DL (<150)
== END ==
LOC: M WUC 09:23
PROVIDERS: ATTEND Physician Assistant Medical
DX: I67.1 Cerebral aneurysm, nonruptured (principal); Z13.220 Encounter for screening for lipoid disorders

== ENCOUNTER → 2021-12-03 | Outpatient (CLI) | payer BC | LOC: M RAD 10:55 | PROVIDERS: ATTEND Physician Assistant Medical | DX: I67.1 Cerebral aneurysm, nonruptured (principal) ==

== ENCOUNTER → 2022-11-11 | Outpatient (CLI) | payer BC, MEDICAID ==
[2022-11-11 17:07] LABS: BASO % 0.4 % (0.0-1.0); EOS % 0.3 % (0.0-3.0); HEMATOCRIT 48.6 % (42.0-52.0); HEMOGLOBIN 16.1 g/dl (13.5-17.5); LYMPH # 2.7 10^3/uL (1.5-5.0); LYMPH % 27.7 % (24.0-44.0); MEAN CORPUSCULAR HEMOGLOBIN 27.7 pg (27.0-33.0); MEAN CORPUSCULAR HGB CONC 33.1 g/dl (32.0-36.5); MEAN CORPUSCULAR VOLUME 83.6 fl (80.0-96.0); MONO # 0.8 10^3/uL (0.0-0.8); MONO % 8.5 % (2.0-8.0); NEUTROPHILS # 6.1 10^3/uL (1.5-8.5); NEUTROPHILS % 62.9 % (36.0-66.0); PLATELET COUNT, AUTOMATED 382 10^3/uL (150-450); RED BLOOD COUNT 5.81 10^6/uL (4.30-6.10); WHITE BLOOD COUNT 9.7 10^3/uL (4.0-10.0)
[2022-11-11 17:25] LABS: ALBUMIN 4.4 G/DL (3.2-5.2); ALKALINE PHOSPHATASE 79 U/L (46-116); ALT/SGPT 22 U/L (7.0-40); AST/SGOT 9 U/L (<34); BILIRUBIN,TOTAL 0.8 MG/DL (0.3-1.2); BLOOD UREA NITROGEN 11 MG/DL (9-23); CALCIUM LEVEL 9.6 MG/DL (8.5-10.1); CARBON DIOXIDE LEVEL 30 MMOL/L (20-31); CHLORIDE LEVEL 103 MMOL/L (98-107); CHOLESTEROL LEVEL 186 MG/DL (<200); CREATININE FOR GFR 1.01 MG/DL (0.70-1.30); GLOMERULAR FILTRATION RATE > 60.0 (>60); GLUCOSE, FASTING 95 MG/DL (60-100); HDL CHOLESTEROL 58.1 MG/DL (>40); LDL CHOLESTEROL 103.9 MG/DL (<100); NON-HDL-C 127.9 MG/DL; POTASSIUM SERUM 4.4 MMOL/L (3.5-5.1); SODIUM LEVEL 141 MMOL/L (136-145); TRIGLYCERIDES LEVEL 120 MG/DL (<150)
== END ==
LOC: M WUC 14:09
PROVIDERS: ATTEND Physician Assistant Medical
DX: Z13.220 Encounter for screening for lipoid disorders (principal); G47.33 Obstructive sleep apnea (adult) (pediatric); J30.1 Allergic rhinitis due to pollen; R55 Syncope and collapse

== ENCOUNTER → 2023-04-10 | Outpatient (CLI) | payer OTHER | LOC: M RAD 12:47 | PROVIDERS: ATTEND Neurological Surgery | DX: I67.1 Cerebral aneurysm, nonruptured (principal) ==